=== PATIENT | male | born 1985 | race Caucasian/White ===

== ENCOUNTER 2017-11-02 02:20 | Emergency (ER) | payer OTHER ==
[2017-11-02 02:28] VITALS: TEMP 97.7
[2017-11-02] MEDS ORDERED: DEXAMETHASONE SOD PHOSPHATE 10 MG/ML 1 ML VIAL IV STA (02:48)
[2017-11-02] MEDS ORDERED: IPRATROPIUM-ALBUTEROL 3 ML NEB INHALATION STA (02:48)
[2017-11-02] MEDS ORDERED: cefTRIAXone 2,000 MG in SODIUM CHLORIDE 0.9% 100 ML IVPB STA (02:49)
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
[2017-11-02 02:56] LABS: Basophils # (A) 0.1 k/uL (0-0.2); Basophils % (A) 1 %; Eosinophils # (A) 0.1 k/uL (0-0.7); Eosinophils % (A) 2 %; HCT 44.6 % (39.0-53.0); HGB 15.6 gm/dL (13.0-17.5); Lymphocytes # (A) 2.2 k/uL (1.0-4.8); Lymphocytes % (A) 29 %; MCH 30.8 pg (25.0-35.0); MCV 88.1 fL (80.0-100.0); Mean Platelet Volume 6.9; Monocytes # (A) 0.5 k/uL (0-1.0); Monocytes % (A) 6 %; Neutrophils # (A) 4.6 k/uL (1.3-7.7); Neutrophils % (A) 60 %; Platelet Count 204 k/uL (150-450); RBC 5.06 m/uL (4.30-5.90); RDW 12.9 % (11.5-15.5); WBC 7.7 k/uL (3.8-10.6)
[2017-11-02] MEDS ORDERED: cefTRIAXone IN SWFI 2,000 MG/20 ML SYRINGE IVP ONE (03:00)
[2017-11-02 03:06] LABS: ALT 46 U/L (21-72); AST 22 U/L (17-59); Albumin 4.7 g/dL (3.5-5.0); Alkaline Phosphatase 57 U/L (38-126); Anion Gap 14 mmol/L; Blood Urea Nitrogen 20 mg/dL (9-20); Calcium 9.9 mg/dL (8.4-10.2); Carbon Dioxide 29 mmol/L (22-30); Chloride 101 mmol/L (98-107); Glucose 124 mg/dL (74-99); Potassium 3.9 mmol/L (3.5-5.1); Sodium 144 mmol/L (137-145); Total Bilirubin 0.6 mg/dL (0.2-1.3); Total Protein 7.1 g/dL (6.3-8.2)
[2017-11-02 03:14] VITALS: RESP 16
--- NOTE | 2017-11-02 03:24 | XR ---
EXAM: XR Chest, 2 Views CLINICAL HISTORY: ITS.REASON XR Reason: Pain TECHNIQUE: Frontal and lateral views of the chest. COMPARISON: None. FINDINGS: Lungs: Unremarkable. The lungs are clear. Pleural space: Unremarkable. No pneumothorax. Heart: Unremarkable. No cardiomegaly. Mediastinum: Unremarkable. Bones/joints: Unremarkable. IMPRESSION: Normal chest x-rays.
[2017-11-02 04:50] VITALS: BP 120/86; PULSE 83
== END 2017-11-02 05:07 | disposition home or self-care (01) ==
LOC: EC 02:20
DX: T59.811A Toxic effect of smoke, accidental (unintentional), initial encounter (principal); J70.5 Respiratory conditions due to smoke inhalation; F17.200 Nicotine dependence, unspecified, uncomplicated; Y92.009 Unspecified place in unspecified non-institutional (private) residence as the place of occurrence of the external cause
CPT/HCPCS: 99285; 96374; 96375; 36415; 94640; 93005; 80053; 82375; 85025; 71046; J1100; J0696

== ENCOUNTER 2017-11-29 15:22 | Emergency (ER) | payer OTHER ==
[2017-11-29] MEDS ORDERED: MORPHINE SULFATE 2 MG/ML SYRINGE IVP PRN (15:40)
[2017-11-29] MEDS ORDERED: SODIUM CHLORIDE 0.9% 1,000 ML IV STA (15:40)
[2017-11-29] MEDS ORDERED: MAG HYDROX/AL HYDROX/SIMETH 30 ML, HYOSCYAMINE ELIXIR 10 ML, CIMETIDINE HCL 300 MG, LID... PO STA ×4 (15:42)
[2017-11-29 15:55] LABS: Basophils % (A) 1 %; Eosinophils # (A) 0.1 k/uL (0-0.7); Eosinophils % (A) 2 %; HCT 42.2 % (39.0-53.0); HGB 14.7 gm/dL (13.0-17.5); Lymphocytes # (A) 1.8 k/uL (1.0-4.8); Lymphocytes % (A) 33 %; MCHC 34.8 g/dL (31.0-37.0); MCV 88.9 fL (80.0-100.0); Mean Platelet Volume 6.9; Monocytes # (A) 0.5 k/uL (0-1.0); Monocytes % (A) 8 %; Neutrophils # (A) 2.9 k/uL (1.3-7.7); Neutrophils % (A) 53 %; Platelet Count 182 k/uL (150-450); RBC 4.75 m/uL (4.30-5.90); RDW 13.5 % (11.5-15.5); WBC 5.5 k/uL (3.8-10.6)
[2017-11-29 16:04] LABS: ALT 41 U/L (21-72); AST 25 U/L (17-59); Albumin 4.5 g/dL (3.5-5.0); Alkaline Phosphatase 50 U/L (38-126); Anion Gap 13 mmol/L; Blood Urea Nitrogen 19 mg/dL (9-20); Calcium 9.3 mg/dL (8.4-10.2); Carbon Dioxide 25 mmol/L (22-30); Chloride 103 mmol/L (98-107); Glucose 102 mg/dL (74-99); Lipase 29 U/L (23-300); Potassium 3.8 mmol/L (3.5-5.1); Sodium 141 mmol/L (137-145); Total Bilirubin 0.9 mg/dL (0.2-1.3); Total Protein 7.2 g/dL (6.3-8.2)
--- NOTE | 2017-11-29 16:29 | ED ---
General Adult HPI - General Chief complaint: Abdominal Pain Stated complaint: Abd Pain Source: patient Mode of arrival: ambulatory Limitations: no limitations - History of Present Illness Initial comments: HPI Macro Chief Complaint: 31-year-old male withan past medical history presents with chief complaint of one month of abdominal pain. History of Present Illness: Is a 31-year-old male presents with 1 month history of abdominal pain. Patient states that his symptoms have been increasing in severity and frequency prompting him to the emergency department today. He localizes his abdominal symptoms diffusely worse in the left upper quadrant. Patient has had some episodes of bloody emesis. Patient has been having regular bowel movements. He has any recent abdominal surgery or any abdominal surgery. Denies any diarrhea. Presents today with severe abdominal pain. Denies any pain postprandially. Denies any constitutional symptoms Past Medical History: [reviewed, none to report] Past Surgical History:[reviewed, none to report] Social History: Regular marijuana, regular tobacco Family History: reviewed and noncontributory The ROS documented in this emergency department record has been reviewed and confirmed by me. Those systems with pertinent positive or negative responses have been documented in the HPI. All other systems are other negative and/or noncontributory. - Related Data Previous Rx's Medication Instructions Recorded Azithromycin [Zithromax Tri-Michi] 500 mg PO DAILY #3 tab 11/02/17 Dicyclomine [Bentyl] 10 mg PO TID PRN #20 capsule 11/29/17 Pantoprazole Sodium [Protonix] 40 mg PO DAILY #20 tablet. 11/29/17 Allergies Allergy/AdvReac Type Severity Reaction Status Date / Time No Known Allergies Allergy Verified 11/29/17 15:27 Review of Systems ROS Statement: Those systems with pertinent positive or pertinent negative responses have been documented in the HPI. ROS Other: All systems not noted in ROS Statement are negative. Past Medical History Past Medical History: No Reported History History of Any Multi-Drug Resistant Organisms: None Reported Past Surgical History: No Surgical Hx Reported Past Psychological History: No Psychological Hx Reported Smoking Status: Current every day smoker Past Alcohol Use History: Occasional Past Drug Use History: Marijuana General Exam - General Exam Comments Initial Comments: Vitals: Vital signs upon arrival are within acceptable limits PHYSICAL EXAM: General Impression: Alert and oriented x3, not in acute distress HEENT: Normocephalic atraumatic, extra-ocular movements intact, pupils equal and reactive to light bilaterally, mucous membranes moist. Cardiovascular: Heart regular rate and rhythm, S1&S2 audible, no murmurs, rubs or gallops Chest: Lungs clear to auscultation bilaterally, no rhonchi, no wheeze, no rales Abdomen: Regular bowel sounds, diffuse abdominal tenderness to palpation, worse in the left upper quadrant Musculoskeletal: Pulses present and equal in all extremities, no peripheral edema Motor: Power 5/5 bilaterally, no focal deficits noted Neurological: CN II-XII grossly intact, no focal motor or sensory deficits noted Skin: Intact with no visualized rashes Psych: Normal affect and mood Limitations: no limitations Course Vital Signs 11/29/17 11/29/17 15:24 16:36 Temperature 98.1 F 98.5 F Pulse Rate 90 65 Respiratory 20 18 Rate Blood Pressure 117/82 126/79 O2 Sat by Pulse 99 98 Oximetry Medical Decision Making - Medical Decision Making ED course: 31-year-old male presents with 1 month history of diffuse abdominal pain.Laboratory evaluation obtained. CBC is unremarkable. No leukocytosis. Hemoglobin stable. Cumbersome metabolic panel shows no acute processes. Lipase is within normal limits. Computed tomography scan of the abdomen and pelvis with contrast was obtained showing no acute processes. Patient was given intravenous fluids, morphine and GI cocktail. At this point there is suspicion that patient's symptoms represent gastritis versus peptic ulcer. [id number] bedside ultrasound performed to look for gallstones. No gallstones noted on ultrasound. At this point there is no clinical suspicion for surgical abdomen at this time. No click suspicion for cholecystitis, pancreatitis or bowel obstruction. Discussed with patient that he should follow -up with gastroenterology for outpatient management and possible EGD. Patient told to return to the emergency Department with any worsening symptoms. Patient is understandable and agreeable to plan. Patient given prescription for Pepcid and Bentyl. Patient tolerate by mouth at bedside. Patient's pain is controlled at time of discharge. - Lab Data Result diagrams: 11/29/17 15:45 11/29/17 15:45 Lab Results 11/29/17 11/29/17 Range/Units 15:45 15:45 WBC 5.5 (3.8-10.6) k/uL RBC 4.75 (4.30-5.90) m/uL Hgb 14.7 (13.0-17.5) gm/dL Hct 42.2 (39.0-53.0) % MCV 88.9 (80.0-100.0) fL MCH 31.0 (25.0-35.0) pg MCHC 34.8 (31.0-37.0) g/dL RDW 13.5 (11.5-15.5) % Plt Count 182 (150-450) k/uL Neutrophils % 53 % Lymphocytes % 33 % Monocytes % 8 % Eosinophils % 2 % Basophils % 1 % Neutrophils # 2.9 (1.3-7.7) k/uL Lymphocytes # 1.8 (1.0-4.8) k/uL Monocytes # 0.5 (0-1.0) k/uL Eosinophils # 0.1 (0-0.7) k/uL Basophils # 0.0 (0-0.2) k/uL Sodium 141 (137-145) mmol/L Potassium 3.8 (3.5-5.1) mmol/L Chloride 103 (98-107) mmol/L Carbon Dioxide 25 (22-30) mmol/L Anion Gap 13 mmol/L BUN 19 (9-20) mg/dL Creatinine 0.99 (0.66-1.25) mg/dL Est GFR (CKD-EPI)AfAm >90 (>60 ml/min/1.73 sqM) Est GFR (CKD-EPI)NonAf >90 (>60 ml/min/1.73 sqM) Glucose 102 H (74-99) mg/dL Calcium 9.3 (8.4-10.2) mg/dL Total Bilirubin 0.9 (0.2-1.3) mg/dL AST 25 (17-59) U/L ALT 41 (21-72) U/L Alkaline Phosphatase 50 (38-126) U/L Total Protein 7.2 (6.3-8.2) g/dL Albumin 4.5 (3.5-5.0) g/dL Lipase 29 (23-300) U/L Disposition Clinical Impression: Abdominal pain Disposition: HOME SELF-CARE Condition: Fair Instructions: Abdominal Pain (ED), Gastritis (ED), Peptic Ulcer (ED) Prescriptions: Dicyclomine [Bentyl] 10 mg PO TID PRN #20 capsule PRN Reason: Pain Pantoprazole Sodium [Protonix] 40 mg PO DAILY #20 tablet.dr Is patient prescribed a controlled substance at d/c from ED?: No Referrals: None,Stated [Primary Care Provider] - 1-2 days Antoine Phelan MD [STAFF PHYSICIAN] - 1-2 days Time of Disposition: 17:07
[2017-11-29 16:37] VITALS: RESP 18
--- NOTE | 2017-11-29 16:46 | CT ---
EXAMINATION TYPE: CT abdomen pelvis w con DATE OF EXAM: 11/29/2017 COMPARISON: HISTORY: Generalized abdominal pain x [address] DLP: 345.6 mGycm Automated exposure control for dose reduction was used. TECHNIQUE: Helical acquisition of images from the lung bases through the pelvis have been completed. CONTRAST: Performed without Oral Contrast and with IV Contrast, patient injected with 100 mL of Isovue 300. FINDINGS: LUNG BASES: No significant abnormality is appreciated. AORTA: No significant abnormality is appreciated. LIVER/GB: Hypodensity at the dome of the liver axial image 8 is subcentimeter in size and statistical ly likely representing a cyst. Gallbladder is normal. PANCREAS: No significant abnormality is seen. SPLEEN: No significant abnormality is seen. ADRENALS: No significant abnormality is seen. KIDNEYS: No significant abnormality is seen. REPRODUCTIVE ORGANS: No significant abnormality is seen BOWEL: No significant abnormality is seen. No evident appendicitis, appendix not well visualized FREE AIR: No Free Air visible. ASCITES: None visible. PELVIC ADENOPATHY: None visualized. RETROPERITONEAL ADENOPATHY: No Retroperitoneal Adenopathy visible. URINARY BLADDER: No significant abnormality is seen. OSSEOUS STRUCTURES: Disc height loss present at L5-S1. Mild disc bulge suspected L4-5, there may be spinal curvature. IMPRESSION: NO ABNORMALITY EVIDENT TO ACCOUNT FOR PATIENT'S SYMPTOMS. LACK OF INTRA-ABDOMINAL FAT COULD LIMIT SEN SITIVITY. Follow-up as indicated.
[2017-11-29 17:33] VITALS: BP 111/56; PULSE 80; TEMP 98.4
== END 2017-11-29 17:33 | disposition home or self-care (01) ==
LOC: EC 15:22
DX: R10.9 Unspecified abdominal pain (principal); K92.0 Hematemesis; F17.200 Nicotine dependence, unspecified, uncomplicated
CPT/HCPCS: 36415; 80053; 83690; 85025; 74177; 99284; 96374; 96361; J2270; Q9967

== ENCOUNTER 2018-03-19 14:23 | Inpatient (IN) | payer OTHER ==
[2018-03-19] MEDS ORDERED: IPRATROPIUM-ALBUTEROL 3 ML NEB INHALATION STA (14:45)
[2018-03-19] MEDS ORDERED: SODIUM CHLORIDE 0.9% 1,000 ML IV STA (14:45)
[2018-03-19] MEDS ORDERED: KETOROLAC 30 MG/ML 1 ML VIAL IVP STA (14:49)
[2018-03-19] MEDS ORDERED: SODIUM CHLORIDE 0.9% 1,000 ML IV ONE (14:49)
--- NOTE | 2018-03-19 14:52 | ED ---
General Adult HPI - General Chief complaint: Upper Respiratory Infection Stated complaint: Cough Time Seen by Provider: 03/19/18 14:41 Source: patient, RN notes reviewed, old records reviewed Mode of arrival: ambulatory Limitations: no limitations - History of Present Illness Initial comments: 32-year-old male presents with multiple complaints. Chief complaint is cough and dyspnea. Cough is productive of yellow to brown sputum. Patient is a current smoker. He states that he's been coughing for the past 2 weeks. This is worsened. He is also developed some nausea and vomiting and has been unable to tolerate much oral intake. He admits to using IV drugs approximately one week ago but is uncertain what drug use. He is also complaining of some irritation and drainage to his left eye. Denies abdominal pain. Denies dysuria. Denies fever but has had chills. - Related Data Home Medications Medication Instructions Recorded Confirmed No Known Home Medications 03/19/18 03/19/18 Allergies Allergy/AdvReac Type Severity Reaction Status Date / Time No Known Allergies Allergy Verified 03/19/18 14:37 Review of Systems ROS Statement: Those systems with pertinent positive or pertinent negative responses have been documented in the HPI. ROS Other: All systems not noted in ROS Statement are negative. Past Medical History Past Medical History: No Reported History History of Any Multi-Drug Resistant Organisms: None Reported Past Surgical History: No Surgical Hx Reported Past Psychological History: No Psychological Hx Reported Smoking Status: Current every day smoker Past Alcohol Use History: Occasional Past Drug Use History: Marijuana General Exam Limitations: no limitations General appearance: alert, in no apparent distress Head exam: Present: atraumatic, normocephalic Eye exam: Present: PERRL, other (Palpebral conjunctivitis left eye, normal sclera) Neck exam: Present: normal inspection, full ROM Respiratory exam: Present: wheezes, rhonchi. Absent: respiratory distress Cardiovascular Exam: Present: normal rhythm, tachycardia GI/Abdominal exam: Present: soft. Absent: distended, tenderness Extremities exam: Present: normal inspection, normal capillary refill. Absent: pedal edema Neurological exam: Present: alert, oriented X3, CN II-XII intact. Absent: motor sensory deficit Skin exam: Present: warm, dry, intact. Absent: cyanosis, diaphoretic Course Vital Signs 03/19/18 03/19/18 03/19/18 14:28 15:37 15:49 Temperature 98.4 F Pulse Rate 124 H 104 H 91 Respiratory 18 Rate Blood Pressure 115/74 O2 Sat by Pulse 98 Oximetry 03/19/18 03/19/18 16:50 17:48 Temperature Pulse Rate 76 Respiratory 18 20 Rate Blood Pressure 107/70 O2 Sat by Pulse 98 Oximetry EKG Findings - EKG Comments: EKG Findings:: EKG: Normal sinus rhythm, rate of 88, DC interval 132, QRS duration 82, QTC 46, there is DC depression primarily seen in the inferior leads , 23, aVF, T waves are upright. Medical Decision Making - Medical Decision Making 32-year-old male presenting with cough, dyspnea, and chest pain. Symptoms have been ongoing for the past 2 weeks. EKG does show some DC depression which may be related to pericarditis. Chest x-ray negative for focal pneumonia. Patient is a current smoker and has wheezing on bilateral lung aburto. Dyspnea likely related to acute bronchitis. On reevaluation, he remains dyspneic, with end expiratory wheezing after steroids, Toradol, fluids, and albuterol and Atrovent. He will be kept in observation both for treatment of acute bronchitis and reactive airway disease as well as evaluation of possible pericarditis given EKG changes. Echo will be obtained. Patient will be kept on Motrin 600 mg every 8 hours. Patient was treated with 1 g Rocephin and 500 mg of azithromycin in the emergency department. Urine culture and blood cultures are pending. GC and chlamydia pending as well. - Lab Data Result diagrams: 03/19/18 15:20 03/19/18 15:20 Lab Results 03/19/18 03/19/18 03/19/18 Range/Units 15:20 15:20 15:20 WBC 11.2 H (3.8-10.6) k/uL RBC 4.51 (4.30-5.90) m/uL Hgb 13.8 (13.0-17.5) gm/dL Hct 41.3 (39.0-53.0) % MCV 91.4 (80.0-100.0) fL MCH 30.6 (25.0-35.0) pg MCHC 33.4 (31.0-37.0) g/dL RDW 12.6 (11.5-15.5) % Plt Count 234 (150-450) k/uL Neutrophils % 78 % Lymphocytes % 11 % Monocytes % 8 % Eosinophils % 1 % Basophils % 0 % Neutrophils # 8.7 H (1.3-7.7) k/uL Lymphocytes # 1.2 (1.0-4.8) k/uL Monocytes # 0.9 (0-1.0) k/uL Eosinophils # 0.1 (0-0.7) k/uL Basophils # 0.0 (0-0.2) k/uL PT (9.0-12.0) sec INR (<1.2) APTT (22.0-30.0) sec Sodium 139 (137-145) mmol/L Potassium 4.0 (3.5-5.1) mmol/L Chloride 101 (98-107) mmol/L Carbon Dioxide 29 (22-30) mmol/L Anion Gap 9 mmol/L BUN 17 (9-20) mg/dL Creatinine 1.10 (0.66-1.25) mg/dL Est GFR (CKD-EPI)AfAm >90 (>60 ml/min/1.73 sqM) Est GFR (CKD-EPI)NonAf 89 (>60 ml/min/1.73 sqM) Glucose 101 H (74-99) mg/dL Calcium 9.1 (8.4-10.2) mg/dL Magnesium 2.1 (1.6-2.3) mg/dL Total Bilirubin 0.7 (0.2-1.3) mg/dL AST 45 (17-59) U/L ALT 59 (21-72) U/L Alkaline Phosphatase 108 (38-126) U/L Total Creatine Kinase 112 (55-170) U/L CK-MB (CK-2) 0.4 (0.0-2.4) ng/mL CK-MB (CK-2) Rel Index 0.4 Troponin I <0.012 (0.000-0.034) ng/mL Total Protein 6.9 (6.3-8.2) g/dL Albumin 3.8 (3.5-5.0) g/dL Urine Color Urine Appearance (Clear) Urine pH (5.0-8.0) Ur Specific [place] (1.001-1.035) Urine Protein (Negative) Urine Glucose (UA) (Negative) Urine Ketones (Negative) Urine Blood (Negative) Urine Nitrite (Negative) Urine Bilirubin (Negative) Urine Urobilinogen (<2.0) mg/dL Ur Leukocyte Esterase (Negative) Urine RBC (0-5) /hpf Urine WBC (0-5) /hpf Ur Squamous Epith Cells (0-4) /hpf Urine Mucus (None) /hpf Urine Opiates Screen (NotDetected) Ur Oxycodone Screen (NotDetected) Urine Methadone Screen (NotDetected) Ur Propoxyphene Screen (NotDetected) Ur Barbiturates Screen (NotDetected) U Tricyclic Antidepress (NotDetected) Ur Phencyclidine Scrn (NotDetected) Ur Amphetamines Screen (NotDetected) U Methamphetamines Scrn (NotDetected) U Benzodiazepines Scrn (NotDetected) Urine Cocaine Screen (NotDetected) U Marijuana (THC) Screen (NotDetected) 03/19/18 03/19/18 Range/Units 15:20 Unknown WBC (3.8-10.6) k/uL RBC (4.30-5.90) m/uL Hgb (13.0-17.5) gm/dL Hct (39.0-53.0) % MCV (80.0-100.0) fL MCH (25.0-35.0) pg MCHC (31.0-37.0) g/dL RDW (11.5-15.5) % Plt Count (150-450) k/uL Neutrophils % % Lymphocytes % % Monocytes % % Eosinophils % % Basophils % % Neutrophils # (1.3-7.7) k/uL Lymphocytes # (1.0-4.8) k/uL Monocytes # (0-1.0) k/uL Eosinophils # (0-0.7) k/uL Basophils # (0-0.2) k/uL PT 10.3 (9.0-12.0) sec INR 1.0 (<1.2) APTT 28.2 (22.0-30.0) sec Sodium (137-145) mmol/L Potassium (3.5-5.1) mmol/L Chloride (98-107) mmol/L Carbon Dioxide (22-30) mmol/L Anion Gap mmol/L BUN (9-20) mg/dL Creatinine (0.66-1.25) mg/dL Est GFR (CKD-EPI)AfAm (>60 ml/min/1.73 sqM) Est GFR (CKD-EPI)NonAf (>60 ml/min/1.73 sqM) Glucose (74-99) mg/dL Calcium (8.4-10.2) mg/dL Magnesium (1.6-2.3) mg/dL Total Bilirubin (0.2-1.3) mg/dL AST (17-59) U/L ALT (21-72) U/L Alkaline Phosphatase (38-126) U/L Total Creatine Kinase (55-170) U/L CK-MB (CK-2) (0.0-2.4) ng/mL CK-MB (CK-2) Rel Index Troponin I (0.000-0.034) ng/mL Total Protein (6.3-8.2) g/dL Albumin (3.5-5.0) g/dL Urine Color Yellow Urine Appearance Clear (Clear) Urine pH 7.5 (5.0-8.0) Ur Specific [place] 1.016 (1.001-1.035) Urine Protein Trace H (Negative) Urine Glucose (UA) Negative (Negative) Urine Ketones Negative (Negative) Urine Blood Negative (Negative) Urine Nitrite Negative (Negative) Urine Bilirubin Negative (Negative) Urine Urobilinogen >12.0 (<2.0) mg/dL Ur Leukocyte Esterase Moderate H (Negative) Urine RBC 6 H (0-5) /hpf Urine WBC 15 H (0-5) /hpf Ur Squamous Epith Cells <1 (0-4) /hpf Urine Mucus Rare H (None) /hpf Urine Opiates Screen Not Detected (NotDetected) Ur Oxycodone Screen Not Detected (NotDetected) Urine Methadone Screen Not Detected (NotDetected) Ur Propoxyphene Screen Not Detected (NotDetected) Ur Barbiturates Screen Not Detected (NotDetected) U Tricyclic Antidepress Not Detected (NotDetected) Ur Phencyclidine Scrn Not Detected (NotDetected) Ur Amphetamines Screen Detected H (NotDetected) U Methamphetamines Scrn Detected H (NotDetected) U Benzodiazepines Scrn Detected H (NotDetected) Urine Cocaine Screen Not Detected (NotDetected) U Marijuana (THC) Screen Detected H (NotDetected) Disposition Clinical Impression: Bronchitis, Reactive airway disease, Pericarditis Disposition: ADMITTED IP TO THIS HOSP Condition: Stable Is patient prescribed a controlled substance at d/c from ED?: No Referrals: Odin Hagen MD [Primary Care Provider] - 1-2 days Decision to Admit Reason: Admit from EC Decision Date: 03/19/18 Decision Time: 17:55
[2018-03-19] MEDS ORDERED: AZITHROMYCIN 500 MG in SODIUM CHLORIDE 0.9% 250 ML IVPB STA (16:06)
--- NOTE | 2018-03-19 16:09 | XR ---
EXAMINATION TYPE: XR chest 2V DATE OF EXAM: 03/19/2018 COMPARISON: NONE HISTORY: Shortness of breath. TECHNIQUE: Frontal and lateral views of the chest are obtained. FINDINGS: There is no focal air space opacity, pleural effusion, or pneumothorax seen. The cardiac silhouette size is within normal limits. The osseous structures are intact. There is pulmonary hype rinflation and biapical lucency. IMPRESSION: No acute cardiopulmonary process. Radiographic sequela of COPD.
[2018-03-19 16:31] LABS: Basophils % (A) 0 %; Eosinophils # (A) 0.1 k/uL (0-0.7); Eosinophils % (A) 1 %; HCT 41.3 % (39.0-53.0); HGB 13.8 gm/dL (13.0-17.5); Lymphocytes # (A) 1.2 k/uL (1.0-4.8); Lymphocytes % (A) 11 %; MCH 30.6 pg (25.0-35.0); MCHC 33.4 g/dL (31.0-37.0); MCV 91.4 fL (80.0-100.0); Mean Platelet Volume 7.6; Monocytes # (A) 0.9 k/uL (0-1.0); Monocytes % (A) 8 %; Neutrophils # (A) 8.7 k/uL (1.3-7.7); Neutrophils % (A) 78 %; Platelet Count 234 k/uL (150-450); RBC 4.51 m/uL (4.30-5.90); RDW 12.6 % (11.5-15.5); WBC 11.2 k/uL (3.8-10.6)
[2018-03-19 16:40] LABS: ALT 59 U/L (21-72); AST 45 U/L (17-59); Albumin 3.8 g/dL (3.5-5.0); Alkaline Phosphatase 108 U/L (38-126); Anion Gap 9 mmol/L; Blood Urea Nitrogen 17 mg/dL (9-20); Calcium 9.1 mg/dL (8.4-10.2); Carbon Dioxide 29 mmol/L (22-30); Chloride 101 mmol/L (98-107); Glucose 101 mg/dL (74-99); Magnesium 2.1 mg/dL (1.6-2.3); Sodium 139 mmol/L (137-145); Total Bilirubin 0.7 mg/dL (0.2-1.3); Total Protein 6.9 g/dL (6.3-8.2)
[2018-03-19 16:49] LABS: Creatine Kinase 112 U/L (55-170)
[2018-03-19 16:50] LABS: Partial Thromboplastin Time 28.2 sec (22.0-30.0); Prothrombin Time 10.3 sec (9.0-12.0)
[2018-03-19] MEDS ORDERED: DEXAMETHASONE SOD PHOSPHATE 10 MG/ML 1 ML VIAL IV STA (16:59)
[2018-03-19 17:02] LABS: Creatine Kinase MB 0.4 ng/mL (0.0-2.4); Troponin I <0.012 ng/mL (0.000-0.034)
[2018-03-19 17:35] LABS: Appearance,Urine Clear (Clear); Bilirubin,Urine Negative (Negative); Blood,Urine Negative (Negative); Color,Urine Yellow; Glucose,Urine (UA) Negative (Negative); Ketones,Urine Negative (Negative); Leukocyte Esterase,Urine Moderate (Negative); Mucus,Urine Rare /hpf; Nitrite,Urine Negative (Negative); PH, Urine 7.5 (5.0-8.0); Protein,Urine Trace (Negative); RBC,Urine 6 /hpf (0-5); Specific Gravity,Urine 1.016 (1.001-1.035); Squamous Epithelial Cell,Urine <1 /hpf (0-4); Urobilinogen,Urine >12.0 mg/dL (<2.0); WBC,Urine 15 /hpf (0-5)
[2018-03-19 17:42] LABS: Amphetamine Screen,Urine Detected (NotDetected); Barbiturate Screen,Urine Not Detected (NotDetected); Benzodiazepines Screen,Urine Detected (NotDetected); Cocaine Screen,Urine Not Detected (NotDetected); Methadone Screen, Urine Not Detected (NotDetected); Opiate Screen,Urine Not Detected (NotDetected); Oxycodone Screen, Urine Not Detected (NotDetected); Phencyclidine Screen,Urine Not Detected (NotDetected); Tricyclic Antidepressant,Urine Not Detected (NotDetected); Urn Cannabinoid Scrn Detected (NotDetected)
[2018-03-19] MEDS ORDERED: IPRATROPIUM-ALBUTEROL 3 ML NEB INHALATION PRN (17:49)
[2018-03-19] MEDS: SODIUM CHLORIDE 0.9% 1,000 ML IV SCH (19:02)
[2018-03-19] MEDS: methylPREDNISolone SOD SUCCI 125 MG/2 ML VIAL IV SCH ×2 (20:56→23:00)
[2018-03-19] MEDS: IBUPROFEN 600 MG TAB PO SCH (21:39)
[2018-03-19] MEDS: NICOTINE 21MG/24HR PATCH TRANSDERM SCH (21:56)
[2018-03-19] MEDS: ERYTHROMYCIN 5 MG/GM OPHTH OINT 3.5 GM TUBE LEFT EYE SCH (21:56)
[2018-03-19] MEDS ORDERED: TEMAZEPAM 15 MG CAP PO PRN (22:15)
[2018-03-19] MEDS: ONDANSETRON 4 MG/2 ML VIAL IVP PRN (23:01)
[2018-03-19] MEDS: HYDROcodone/APAP 5-325MG 1 EACH TAB PO PRN (23:15)
[2018-03-20] MEDS: ONDANSETRON 4 MG/2 ML VIAL IVP PRN (04:13)
[2018-03-20] MEDS: LORazepam 0.5 MG TAB PO PRN (04:57)
[2018-03-20] MEDS: methylPREDNISolone SOD SUCCI 125 MG/2 ML VIAL IV SCH ×4 (04:58→22:39)
[2018-03-20] MEDS: ERYTHROMYCIN 5 MG/GM OPHTH OINT 3.5 GM TUBE LEFT EYE SCH ×3 (05:00→18:04)
[2018-03-20 07:02] LABS: Glucose,Whole Blood 216 mg/dL (75-99)
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
[2018-03-20 07:36] LABS: Basophils % (A) 1 %; Eosinophils % (A) 0 %; HCT 37.6 % (39.0-53.0); HGB 12.4 gm/dL (13.0-17.5); Lymphocytes # (A) 0.7 k/uL (1.0-4.8); Lymphocytes % (A) 10 %; MCH 30.4 pg (25.0-35.0); MCHC 32.9 g/dL (31.0-37.0); MCV 92.2 fL (80.0-100.0); Mean Platelet Volume 7.5; Monocytes # (A) 0.1 k/uL (0-1.0); Monocytes % (A) 1 %; Neutrophils # (A) 5.8 k/uL (1.3-7.7); Neutrophils % (A) 87 %; Platelet Count 215 k/uL (150-450); RBC 4.08 m/uL (4.30-5.90); RDW 12.5 % (11.5-15.5); WBC 6.7 k/uL (3.8-10.6)
[2018-03-20 08:00] LABS: Anion Gap 6 mmol/L; Blood Urea Nitrogen 17 mg/dL (9-20); Calcium 8.8 mg/dL (8.4-10.2); Carbon Dioxide 29 mmol/L (22-30); Chloride 107 mmol/L (98-107); Glucose 208 mg/dL (74-99); Potassium 4.8 mmol/L (3.5-5.1); Sodium 142 mmol/L (137-145)
[2018-03-20] MEDS: IPRATROPIUM-ALBUTEROL 3 ML NEB INHALATION SCH ×4 (08:00→19:25)
[2018-03-20] MEDS: HEPARIN SODIUM,PORCINE 5,000 UNIT/ML 1 ML VIAL SQ SCH ×2 (09:06→20:24)
[2018-03-20] MEDS: NICOTINE 21MG/24HR PATCH TRANSDERM SCH (09:06)
[2018-03-20] MEDS: PANTOPRAZOLE 40 MG TABLET PO SCH (09:06)
[2018-03-20] MEDS: IBUPROFEN 600 MG TAB PO SCH ×3 (09:07→20:25)
[2018-03-20] MEDS: AZITHROMYCIN 500 MG TAB PO SCH (09:17)
[2018-03-20] MEDS: INSULIN ASPART 100 UNIT/ML 1 ML 10 ML VIAL SQ SCH ×4 (09:20→21:25)
--- NOTE | 2018-03-20 09:35 | ECHOF ---
Referral Reason:chest pain MEASUREMENTS -------- HEIGHT: 188.0 cm WEIGHT: 70.3 kg BP: RVIDd: 2.4 cm (< 3.3) IVSd: 0.7 cm (0.6 - 1.1) LVIDd: 4.6 cm (3.9 - 5.3) LVPWd: 1.0 cm (0.6 - 1.1) IVSs: 1.2 cm LVIDs: 3.1 cm LVPWs: 1.3 cm LA Diam: 3.0 cm (2.7 - 3.8) Ao Diam: 3.2 cm (2.0 - 3.7) AV Cusp: 1.7 cm (1.5 - 2.6) LA Diam: 3.1 cm (2.7 - 3.8) MV EXCURSION: 22.560 mm (> 18.000) MV EF SLOPE: 81 mm/s (70 - 150) EPSS: 0.2 cm MV E Maldonado: 0.88 m/s MV DecT: 275 ms MV A Maldonado: 0.56 m/s MV E/A Ratio: 1.58 RAP: 5.00 mmHg RVSP: 32.11 mmHg FINDINGS -------- Sinus rhythm. This was a technically good study. LV size, wall thickness and systolic function are normal, with an EF greater than 55%. The left ronel tricular size is normal. The right ventricle is normal in size. The left atrial size is normal. The right atrial size is normal. The aortic valve is trileaflet, and appears structurally normal. No aortic stenosis or regurgitation. Mild mitral annular calcification present. Mild mitral regurgitation is present. Mild tricuspid regurgitation present. There is no evidence of pulmonary hypertension. The right v entricular systolic pressure, as measured by Doppler, is 32.11mmHg. There is no pulmonic regurgitation present. The aortic root size is normal. There is no pericardial effusion. CONCLUSIONS -------- 1. LV size, wall thickness and systolic function are normal, with an EF greater than 55%. 2. The left ventricular size is normal. 3. The right ventricle is normal in size. 4. The left atrial size is normal. 5. The right atrial size is normal. 6. The aortic valve is trileaflet, and appears structurally normal. No aortic stenosis or regurgitati on. 7. Mild mitral annular calcification present. 8. Mild mitral regurgitation is present. 9. Mild tricuspid regurgitation present. 10. There is no evidence of pulmonary hypertension. 11. The right ventricular systolic pressure, as measured by Doppler, is 32.11mmHg. 12. There is no pulmonic regurgitation present. 13. The aortic root size is normal. 14. There is no pericardial effusion. DEPORTATION EXAMINER: Cherelle Bennett RDCS
[2018-03-20 12:23] LABS: Glucose,Whole Blood 237 mg/dL (75-99)
[2018-03-20 13:29] LABS: Hemoglobin A1C 5.3 % (4.0-6.0)
[2018-03-20 14:30] LABS: C. trachomatis,PCR Negative (Neg,Equiv); Chlamydia trachomatis Source Urine; N. gonorrhoeae,PCR Negative (Neg,Equiv); Neisseria Source Urine
[2018-03-20] MEDS: SODIUM CHLORIDE 0.9% 1,000 ML IV SCH ×2 (15:57→18:04)
--- NOTE | 2018-03-20 16:36 | CDI ---
Last Revision, April 2017 Documentation Clarification Form Date: 03/20/2018 4:28:47 PM From: Claudette MendietaCHUY, CCDS Admit Date: 03/20/2018 2:09:00 PM Patient Name: Víctor Porras Visit Number: [id number] Discharge Date: ATTENTION: The Clinical Documentation Specialists (CDI) and [facility] Coding Staff appreciate your assistance in clarifying documentation. Please respond to the clarification below the line at the bottom and electronically sign. The CDI & [facility] Coding staff will review the response and follow-up if needed. Please note: Queries are made part of the Legal Health Record. If you have any questions, please contact the author of this message via ITS. Cha Burch MD: 32 yo male, admitted with SOB & cough, diagnosed with "Acute bronchial asthma acute exacerbation with acute purulent tracheobronchitis" & left eye cellulitis. Patient history/risk factors: Nicotine dependence, polysubstance abuse, asthma & bronchitis. Clinical Indicators: SOB 7 cough for several days, nausea & vomiting, infection in left eye. Radiology: CXR: No acute cardiopulmonary process, sequela of COPD. Vital Signs: P 124^ Treatment: Albuterol INH, IV fluid boluses x2, IV toradol, IV Azithromycin, IV Rocephin, IV Solumedrol. No pulmonary consult. In your professional opinion, can you please further specify the severity & type of asthma, if known? Severity: Mild intermittent Mild persistent Moderate persistent Severe persistent Other, please specify Unable to determine Form or Type: Cough variant Childhood Exercise induced bronchospasm Extrinsic allergic Idiosyncratic Intrinsic nonallergic Late-onset Mixed Other, please specify Unable to determine MTDD
[2018-03-20 16:44] LABS: Glucose,Whole Blood 226 mg/dL (75-99)
[2018-03-20] MEDS: HYDROcodone/APAP 5-325MG 1 EACH TAB PO PRN (20:23)
[2018-03-20 20:40] LABS: Glucose,Whole Blood 268 mg/dL (75-99)
[2018-03-20] MEDS: traMADol 50 MG TAB PO PRN (22:40)
[2018-03-21 00:31] VITALS: RESP 16
[2018-03-21] MEDS: ERYTHROMYCIN 5 MG/GM OPHTH OINT 3.5 GM TUBE LEFT EYE SCH ×2 (02:01→04:44)
[2018-03-21] MEDS: methylPREDNISolone SOD SUCCI 125 MG/2 ML VIAL IV SCH ×2 (04:43→12:11)
[2018-03-21] MEDS: LORazepam 0.5 MG TAB PO PRN (04:45)
[2018-03-21] MEDS: HYDROcodone/APAP 5-325MG 1 EACH TAB PO PRN ×2 (04:45→12:15)
[2018-03-21 06:46] LABS: Glucose,Whole Blood 199 mg/dL (75-99)
[2018-03-21] MEDS: IPRATROPIUM-ALBUTEROL 3 ML NEB INHALATION SCH ×3 (07:01→15:41)
[2018-03-21] MEDS: HEPARIN SODIUM,PORCINE 5,000 UNIT/ML 1 ML VIAL SQ SCH (08:17)
[2018-03-21] MEDS: NICOTINE 21MG/24HR PATCH TRANSDERM SCH (08:17)
[2018-03-21] MEDS: PANTOPRAZOLE 40 MG TABLET PO SCH (08:18)
[2018-03-21] MEDS: INSULIN ASPART 100 UNIT/ML 1 ML 10 ML VIAL SQ SCH ×2 (08:18→12:11)
[2018-03-21] MEDS: AZITHROMYCIN 500 MG TAB PO SCH (08:18)
[2018-03-21] MEDS: traMADol 50 MG TAB PO PRN (08:21)
[2018-03-21] MEDS: IBUPROFEN 600 MG TAB PO SCH (10:48)
[2018-03-21 11:21] VITALS: BMI 18.3
[2018-03-21 11:56] LABS: Glucose,Whole Blood 171 mg/dL (75-99)
[2018-03-21 15:01] VITALS: BP 127/74; TEMP 97.4
[2018-03-21 15:56] VITALS: PULSE 70
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
== END 2018-03-21 20:00 | disposition home or self-care (01) | DRG 203 ==
LOC: EC 14:23 → 1SOBS 17:50 → OBSVTOIN 03-20 14:09
PROVIDERS: ADMIT Hospitalist; ATTEND Hospitalist
DX: J45.31 Mild persistent asthma with (acute) exacerbation (principal); J20.9 Acute bronchitis, unspecified; F17.200 Nicotine dependence, unspecified, uncomplicated; H10.9 Unspecified conjunctivitis; F19.10 Other psychoactive substance abuse, uncomplicated
CPT/HCPCS: 36415; 71046; 80048; 80053; 80306; 81001; 82550; 82553; 83036; 83735; 84484; 85025; 85610; 85730; 87040; 87086; 87491; 87591; 93005; 93306; 94640; 96361; 96365; 96367; 96375; 99285

== ENCOUNTER 2018-08-17 02:24 | Emergency (ER) | payer OTHER ==
[2018-08-17 02:34] VITALS: BP 116/81; PULSE 95; RESP 18; TEMP 98.2
[2018-08-17] MEDS ORDERED: PROPARACAINE 0.5% OPHTH DROPS 15 ML BTL RIGHT EYE STA (03:06)
--- NOTE | 2018-08-17 03:27 | ED ---
ENT HPI - General Source: patient Mode of arrival: ambulatory Limitations: no limitations <Barbara Webb - Last Filed: 08/17/18 03:16> <Eda Adams - Last Filed: 08/18/18 21:11> - General Chief complaint: ENT Stated complaint: R Eye Pain Time Seen by Provider: 08/17/18 02:49 - History of Present Illness Initial comments: 32-year-old male patient presents to the emergency department today for evaluation of right eye irritation and drainage. Patient states that starting earlier in the afternoon patient felt there is something in his eye. Patient states he attempted to flush it and rub it out but it did not work. Patient states later that evening he noticed some green discharge from the eye. Patient states he is still having some eye discomfort. Denies any blurred or double vision. Denies any fevers or chills with this. Patient states he has been sleeping in a house with His [employer]ER[employer] but denies any symptoms the other eye. Patient denies any recent rash, fever, chills, shortness breath, chest pain, abdominal pain, nausea, vomiting, diarrhea, constipation, back pain, numbness, tingling, dizziness, weakness, hematuria, dysuria, urinary urgency, urinary frequency, headache, or any other complaints. (Barbara Webb) - Related Data Previous Rx's Medication Instructions Recorded Azithromycin [Zithromax] 500 mg PO DAILY #2 tab 03/21/18 Erythromycin Ophth Oint [Romycin 1 applic LEFT EYE Q12HR 3 Days #1 03/21/18 Ophth Oint] applic predniSONE 40 mg PO DAILY 2 Days #4 tab 03/21/18 Allergies Allergy/AdvReac Type Severity Reaction Status Date / Time No Known Allergies Allergy Verified 08/17/18 02:34 Review of Systems ROS Other: All systems not noted in ROS Statement are negative. <Barbara Webb - Last Filed: 08/17/18 03:16> ROS Other: All systems not noted in ROS Statement are negative. <Eda Adams - Last Filed: 08/18/18 21:11> ROS Statement: Those systems with pertinent positive or pertinent negative responses have been documented in the HPI. Past Medical History Past Medical History: Asthma Additional Past Medical History / Comment(s): bronchitis, "difficulty sleeping" History of Any Multi-Drug Resistant Organisms: None Reported Past Surgical History: Tonsillectomy Additional Past Surgical History / Comment(s): lt hand sx d/t laceration Past Anesthesia/Blood Transfusion Reactions: No Reported Reaction Additional Past Anesthesia/Blood Transfusion Reaction / Comment(s): clausterphobia Past Psychological History: No Psychological Hx Reported Smoking Status: Current every day smoker Past Alcohol Use History: None Reported Past Drug Use History: None Reported - Past Family History Mother History Unknown: Yes Father History Unknown: Yes <Barbara Webb - Last Filed: 08/17/18 03:16> General Exam Limitations: no limitations General appearance: alert, in no apparent distress, other (Physical well- developed, well-nourished adult male patient in no acute distress. Vital signs upon presentation are temperature 98.2F, pulse 95, respirations 18, blood pressure 116/81, pulse ox 97% on room air.) Eye exam: Present: PERRL, EOMI, other (There is right conjunctival injection, mild lid erythema. Fluorescein stain with Wood's lamp examination was performed and showed no evidence for corneal abrasion or conjunctival injury.). Absent: normal appearance, scleral icterus, conjunctival injection, periorbital swelling ENT exam: Present: normal exam, normal oropharynx, mucous membranes moist Respiratory exam: Present: normal lung sounds bilaterally. Absent: respiratory distress, wheezes, rales, rhonchi, stridor Cardiovascular Exam: Present: regular rate, normal rhythm, normal heart sounds. Absent: systolic murmur, diastolic murmur, rubs, gallop, clicks Neurological exam: Present: alert, oriented X3, CN II-XII intact Psychiatric exam: Present: normal affect, normal mood Skin exam: Present: warm, dry, intact, normal color. Absent: rash <Barbara Webb M - Last Filed: 08/17/18 03:16> Course Vital Signs 08/17/18 02:31 Temperature 98.2 F Pulse Rate 95 Respiratory 18 Rate Blood Pressure 116/81 O2 Sat by Pulse 97 Oximetry Medical Decision Making <Barbara Webb M - Last Filed: 08/17/18 03:16> <Eda Adams - Last Filed: 08/18/18 21:11> - Medical Decision Making 32-year-old male patient presented to the emergency department today for evaluation of ear patient to the right eye with green discharge. Physical examination did reveal mild conjunctival injection. Mild erythema to the upper lid. No edema. Patient denies any visual disturbance. Fluorescein stain with Wood's lamp examination was performed and showed no evidence of corneal or conjunctival injury. Symptoms and phsyical exam findings are consistent with conjunctivitis. We will discharge patient with tobramycin ointment to use 4 times daily. Is instructed to follow-up with ophthalmology for further evaluati on of symptoms aren't improving over the next 1-2 days. He is instructed to follow-up with his primary care physician for recheck in 2 days. Return parameters were discussed in detail. He verbalizes understanding and agrees with this plan. (Barbara Webb) I was available for consultation in the emergency department. The history and physical exam were done by the midlevel provider. I was consulted for this patient's care. I reviewed the case with the midlevel provider and based on their presentation of the patient, I agree with the assessment, medical decision making and plan of care as documented. (Eda Adams) Disposition Is patient prescribed a controlled substance at d/c from ED?: No Time of Disposition: 03:29 <Barbara Webb - Last Filed: 08/17/18 03:16> <Eda Adams - Last Filed: 08/18/18 21:11> Clinical Impression: Right conjunctivitis Disposition: HOME SELF-CARE Condition: Good Instructions (If sedation given, give patient instructions): Tobramycin (Into the eye), Conjunctivitis (ED) Additional Instructions: Use eye ointment 4 times daily while awake. Pulled down lower lid and apply 1 cm ribbon, blink through. Follow-up with packaging clerk for recheck in 1-2 days his symptoms aren't improved. Follow-up through primary care physician for recheck in 1-2 days. Return to the emergency department immediately for any new, worsening, or concerning symptoms. Referrals: Odin Hagen MD [Primary Care Provider] - 1-2 days Chilo Aragon MD [STAFF PHYSICIAN] - 1-2 days
[2018-08-17] MEDS ORDERED: TOBRAMYCIN 0.3% OPHTH OINT 3.5 GM TUBE RIGHT EYE STA (03:29)
== END 2018-08-17 03:49 | disposition home or self-care (01) ==
LOC: EC 02:24
DX: H10.9 Unspecified conjunctivitis (principal); F17.200 Nicotine dependence, unspecified, uncomplicated
CPT/HCPCS: 99283

== ENCOUNTER 2018-08-29 09:23 | Emergency (ER) | payer OTHER ==
[2018-08-29] MEDS ORDERED: SODIUM CHLORIDE 0.9% 1,000 ML IV STA ×2 (09:42)
[2018-08-29] MEDS ORDERED: KETOROLAC 30 MG/ML 1 ML VIAL IVP STA (09:42)
[2018-08-29] MEDS ORDERED: ONDANSETRON 4 MG/2 ML VIAL IVP STA (09:42)
--- NOTE | 2018-08-29 09:45 | ED ---
Chest Pain HPI - General Chief Complaint: Chest Pain Stated Complaint: chest pain Time Seen by Provider: 08/29/18 09:31 Source: patient, RN notes reviewed, old records reviewed Mode of arrival: ambulatory Limitations: no limitations - History of Present Illness Initial Comments: Patient is a 32-year-old male presents emergency department today with comp laints of chest pain and upper abdominal pain for the past 3 days. Patient has had no fevers that he is aware of. He complains of a slight cough. Patient denies any significant past medical history. Patient states that he's had multiple episodes of vomiting. - Related Data Previous Rx's Medication Instructions Recorded Albuterol Inhaler [Ventolin Hfa 1 - 2 puff INHALATION RT-Q6H PRN 08/29/18 Inhaler] #1 inhaler Famotidine [Pepcid] 20 mg PO BID #20 tablet 08/29/18 Ketorolac [Toradol] 10 mg PO Q6HR #12 tab 08/29/18 Ondansetron Odt [Zofran Odt] 4 mg PO Q8HR PRN #20 tab 08/29/18 methylPREDNISolone [Medrol Dose 4 mg PO DIRECTED #1 pack 08/29/18 Pack] Allergies Allergy/AdvReac Type Severity Reaction Status Date / Time No Known Allergies Allergy Verified 08/29/18 09:56 Review of Systems ROS Statement: Those systems with pertinent positive or pertinent negative responses have been documented in the HPI. ROS Other: All systems not noted in ROS Statement are negative. EKG Findings - EKG Comments: EKG Findings:: EKG performed at 945 shows sinus rhythm with early repolarization. Normal EKG noted. Ventricular rate of 73 bpm. NV interval is 144 ms. QRS duration 84 ms. QT 376/414 ms. - EKG Results: EKG: interpreted by CHEPE WILLIAM, normal QRS, normal ST/T Past Medical History Past Medical History: Asthma Additional Past Medical History / Comment(s): bronchitis, "difficulty sleeping" History of Any Multi-Drug Resistant Organisms: None Reported Past Surgical History: Tonsillectomy Additional Past Surgical History / Comment(s): lt hand sx d/t laceration Past Anesthesia/Blood Transfusion Reactions: No Reported Reaction Additional Past Anesthesia/Blood Transfusion Reaction / Comment(s): clausterphobia Past Psychological History: No Psychological Hx Reported Smoking Status: Current every day smoker Past Alcohol Use History: None Reported Past Drug Use History: None Reported - Past Family History Mother History Unknown: Yes Father History Unknown: Yes General Exam - General Exam Comments Initial Comments: Well-appearing 32-year-old male. No distress. Limitations: no limitations General appearance: alert, in no apparent distress Head exam: Present: atraumatic, normocephalic, normal inspection Eye exam: Present: normal appearance, PERRL, EOMI. Absent: scleral icterus, conjunctival injection, periorbital swelling Respiratory exam: Present: normal lung sounds bilaterally. Absent: respiratory distress, wheezes, rales, rhonchi, stridor Cardiovascular Exam: Present: regular rate, normal rhythm, normal heart sounds. Absent: systolic murmur, diastolic murmur, rubs, gallop, clicks GI/Abdominal exam: Present: soft, tenderness (Diffuse), normal bowel sounds. Absent: distended, guarding, rebound, rigid Extremities exam: Present: normal inspection, full ROM, normal capillary refill. Absent: tenderness, pedal edema, joint swelling, calf tenderness Neurological exam: Present: alert, oriented X3, CN II-XII intact Psychiatric exam: Present: normal affect, normal mood Skin exam: Present: warm, dry, intact, normal color, other (Multiple tattoos.). Absent: rash Course Vital Signs 08/29/18 08/29/18 09:23 10:26 Temperature 97.5 F L Pulse Rate 110 H 66 Respiratory 18 16 Rate Blood Pressure 130/93 120/95 O2 Sat by Pulse 94 L 100 Oximetry Chest Pain [facility] 32-year-old male presents for his with diffuse abdominal pain, complains of some chest discomfort. Patient's labwork was reviewed and unremarkable. EKG is normal. Chest x-ray is normal. Patient given Toradol and Zofran. This Patient likely secondary to gastroenteritis. Disc failurussed the Patient to follow-up with his primary care doctor. Discussed putting the Patient on proton next and Zofran. All questions answered. Chest x-ray is negative for any acute process. Disposition Clinical Impression: Nausea & vomiting, Bronchitis Disposition: HOME SELF-CARE Condition: Good Instructions (If sedation given, give patient instructions): Chest Pain (ED) Additional Instructions: Patient advised to rest, increase fluid intake. Follow-up with PCP. Return to ED if any alarming signs or symptoms occur. Prescriptions: methylPREDNISolone [Medrol Dose Pack] 4 mg PO DIRECTED #1 pack Famotidine [Pepcid] 20 mg PO BID #20 tablet Ketorolac [Toradol] 10 mg PO Q6HR #12 tab Albuterol Inhaler [Ventolin Hfa Inhaler] 1 - 2 puff INHALATION RT-Q6H PRN #1 inhaler PRN Reason: Shortness Of Breath Ondansetron Odt [Zofran Odt] 4 mg PO Q8HR PRN #20 tab PRN Reason: Nausea Is patient prescribed a controlled substance at d/c from ED?: No Referrals: Odin Hagen MD [Primary Care Provider] - 1-2 days Time of Disposition: 12:19
--- NOTE | 2018-08-29 10:00 | XR ---
EXAMINATION TYPE: XR chest 2V DATE OF EXAM: 08/29/2018 COMPARISON: 03/19/2018 TECHNIQUE: PA and lateral views submitted. HISTORY: Chest pain FINDINGS: The lungs are clear and there is no pneumothorax, pleural effusion, or focal pneumonia. Biapical pl eural thickening. Hyperinflation suggests COPD. IMPRESSION: 1. No acute process.
[2018-08-29 10:40] LABS: Basophils # (A) 0.1 k/uL (0-0.2); Basophils % (A) 1 %; Eosinophils # (A) 0.1 k/uL (0-0.7); Eosinophils % (A) 2 %; HCT 46.6 % (39.0-53.0); HGB 15.5 gm/dL (13.0-17.5); Lymphocytes # (A) 1.2 k/uL (1.0-4.8); Lymphocytes % (A) 23 %; MCH 29.9 pg (25.0-35.0); MCHC 33.3 g/dL (31.0-37.0); MCV 89.8 fL (80.0-100.0); Mean Platelet Volume 6.9; Monocytes # (A) 0.4 k/uL (0-1.0); Monocytes % (A) 8 %; Neutrophils # (A) 3.4 k/uL (1.3-7.7); Neutrophils % (A) 64 %; Platelet Count 240 k/uL (150-450); RBC 5.19 m/uL (4.30-5.90); RDW 13.3 % (11.5-15.5); WBC 5.3 k/uL (3.8-10.6)
[2018-08-29 10:51] LABS: Partial Thromboplastin Time 24.3 sec (22.0-30.0); Prothrombin Time 10.4 sec (9.0-12.0)
[2018-08-29 11:12] LABS: ALT 30 U/L (21-72); AST 23 U/L (17-59); Albumin 3.9 g/dL (3.5-5.0); Alkaline Phosphatase 67 U/L (38-126); Amylase <30 U/L (30-110); Anion Gap 5 mmol/L; Blood Urea Nitrogen 13 mg/dL (9-20); Calcium 9.4 mg/dL (8.4-10.2); Carbon Dioxide 31 mmol/L (22-30); Chloride 104 mmol/L (98-107); Glucose 88 mg/dL (74-99); Lipase 41 U/L (23-300); Magnesium 2.3 mg/dL (1.6-2.3); Potassium 4.4 mmol/L (3.5-5.1); Sodium 140 mmol/L (137-145); Total Bilirubin 1.2 mg/dL (0.2-1.3); Total Protein 6.1 g/dL (6.3-8.2)
[2018-08-29 12:05] LABS: Appearance,Urine Clear (Clear); Bilirubin,Urine Negative (Negative); Blood,Urine Negative (Negative); Color,Urine Yellow; Glucose,Urine (UA) Negative (Negative); Ketones,Urine 1+ (Negative); Leukocyte Esterase,Urine Negative (Negative); Nitrite,Urine Negative (Negative); PH, Urine 6.5 (5.0-8.0); Protein,Urine Trace (Negative); Specific Gravity,Urine 1.021 (1.001-1.035)
[2018-08-29 13:15] VITALS: BP 121/69; PULSE 77; RESP 18; TEMP 98
== END 2018-08-29 12:55 | disposition home or self-care (01) ==
LOC: EC 09:23
DX: J45.909 Unspecified asthma, uncomplicated (principal); R11.2 Nausea with vomiting, unspecified; R10.84 Generalized abdominal pain; F17.200 Nicotine dependence, unspecified, uncomplicated; Z98.890 Other specified postprocedural states
CPT/HCPCS: 36415; 71046; 80053; 81003; 82150; 83690; 83735; 84484; 85025; 85610; 85730; 87502; 96361; 96374; 96375; 99285

== ENCOUNTER 2018-09-01 16:33 | Observation (INO) | payer OTHER ==
--- NOTE | 2018-09-01 16:48 | ED ---
Abdominal Pain HPI - General Chief Complaint: Abdominal Pain Stated Complaint: Abd Pain Time Seen by Provider: 09/01/18 16:39 Source: patient Mode of arrival: ambulatory Limitations: no limitations - History of Present Illness Initial Comments: 32-year-old male presents with abdominal pain that has been ongoing for the last week. Patient states he was seen 3 days ago for the same thing. Patient having pain mainly across the abdomen but more so on the right side. Patient also having right flank pain. Patient states he has a decreased appetite having nausea and vomiting as well. Patient is having loose stools as well as some blood in the stool as well. No fevers. No surgical history. No dysuria. No recent travel. MD Complaint: abdominal pain -: days(s) (7) Location: diffuse, RUQ, RLQ, R flank Radiation: none Severity scale (1-10): 7 Quality: cramping, aching Improves With: nothing Worsens With: eating Associated Symptoms: nausea, vomiting, diarrhea, melena - Related Data Previous Rx's Medication Instructions Recorded Albuterol Inhaler [Ventolin Hfa 1 - 2 puff INHALATION RT-Q6H PRN 08/29/18 Inhaler] #1 inhaler Famotidine [Pepcid] 20 mg PO BID #20 tablet 08/29/18 Ketorolac [Toradol] 10 mg PO Q6HR #12 tab 08/29/18 Ondansetron Odt [Zofran Odt] 4 mg PO Q8HR PRN #20 tab 08/29/18 methylPREDNISolone [Medrol Dose 4 mg PO DIRECTED #1 pack 08/29/18 Pack] Allergies Allergy/AdvReac Type Severity Reaction Status Date / Time No Known Allergies Allergy Verified 09/01/18 16:37 Review of Systems ROS Statement: Those systems with pertinent positive or pertinent negative responses have been documented in the HPI. ROS Other: All systems not noted in ROS Statement are negative. Constitutional: Denies: fever, chills, weakness ENT: Denies: ear pain Respiratory: Denies: cough Cardiovascular: Denies: chest pain Endocrine: Reports: fatigue Gastrointestinal: Reports: abdominal pain, nausea, vomiting, diarrhea Genitourinary: Denies: dysuria Skin: Denies: rash Neurological: Denies: headache, weakness, numbness, paresthesias Past Medical History Past Medical History: Asthma Additional Past Medical History / Comment(s): bronchitis, "difficulty sleeping" History of Any Multi-Drug Resistant Organisms: None Reported Past Surgical History: Tonsillectomy Additional Past Surgical History / Comment(s): lt hand sx d/t laceration Past Anesthesia/Blood Transfusion Reactions: No Reported Reaction Additional Past Anesthesia/Blood Transfusion Reaction / Comment(s): clausterphobia Past Psychological History: No Psychological Hx Reported Smoking Status: Current every day smoker Past Alcohol Use History: None Reported Past Drug Use History: None Reported - Past Family History Mother History Unknown: Yes Father History Unknown: Yes General Exam Limitations: no limitations General appearance: alert, in no apparent distress Head exam: Present: atraumatic, normocephalic, normal inspection Eye exam: Present: normal appearance, PERRL, EOMI. Absent: scleral icterus, conjunctival injection, periorbital swelling ENT exam: Present: normal exam, mucous membranes moist Respiratory exam: Present: normal lung sounds bilaterally. Absent: respiratory distress, wheezes, rales, rhonchi, stridor Cardiovascular Exam: Present: regular rate, normal rhythm, normal heart sounds. Absent: systolic murmur, diastolic murmur, rubs, gallop, clicks GI/Abdominal exam: Present: soft, tenderness (x 4 but more on right side), guarding, normal bowel sounds. Absent: distended, rebound, rigid Neurological exam: Present: alert, oriented X3, CN II-XII intact Psychiatric exam: Present: normal affect, normal mood Skin exam: Present: warm, dry, intact, normal color. Absent: rash Course Vital Signs 09/01/18 16:34 Temperature 97.7 F Pulse Rate 87 Respiratory 18 Rate Blood Pressure 134/95 O2 Sat by Pulse 99 Oximetry Medical Decision Making - Medical Decision Making reviewed all lab, + hemturia and CT results show cyst in liver, free fluid in pelvis. Discussed with Dr. Crane patient will be admitted under Dr. Hadley Leonardo for further evaluation and treatment. Patient will be put on a clear liquid diet. - Lab Data Result diagrams: 09/01/18 16:50 09/01/18 16:50 Lab Results 09/01/18 09/01/18 09/01/18 Range/Units 16:15 16:50 16:50 WBC 7.3 (3.8-10.6) k/uL RBC 4.69 (4.30-5.90) m/uL Hgb 14.2 (13.0-17.5) gm/dL Hct 40.8 (39.0-53.0) % MCV 86.9 (80.0-100.0) fL MCH 30.2 (25.0-35.0) pg MCHC 34.8 (31.0-37.0) g/dL RDW 15.9 H (11.5-15.5) % Plt Count 186 (150-450) k/uL Neutrophils % 61 % Lymphocytes % 27 % Monocytes % 7 % Eosinophils % 2 % Basophils % 1 % Neutrophils # 4.5 (1.3-7.7) k/uL Lymphocytes # 2.0 (1.0-4.8) k/uL Monocytes # 0.5 (0-1.0) k/uL Eosinophils # 0.2 (0-0.7) k/uL Basophils # 0.0 (0-0.2) k/uL Sodium 145 (137-145) mmol/L Potassium 3.5 (3.5-5.1) mmol/L Chloride 109 H (98-107) mmol/L Carbon Dioxide 30 (22-30) mmol/L Anion Gap 6 mmol/L BUN 12 (9-20) mg/dL Creatinine 0.95 (0.66-1.25) mg/dL Est GFR (CKD-EPI)AfAm >90 (>60 ml/min/1.73 sqM) Est GFR (CKD-EPI)NonAf >90 (>60 ml/min/1.73 sqM) Glucose 95 (74-99) mg/dL Calcium 8.7 (8.4-10.2) mg/dL Total Bilirubin 0.3 (0.2-1.3) mg/dL AST 17 (17-59) U/L ALT 26 (21-72) U/L Alkaline Phosphatase 65 (38-126) U/L Total Protein 5.4 L (6.3-8.2) g/dL Albumin 3.4 L (3.5-5.0) g/dL Amylase 38 (30-110) U/L Lipase 92 (23-300) U/L Urine Color Yellow Urine Appearance Clear (Clear) Urine pH 5.5 (5.0-8.0) Ur Specific [place] 1.013 (1.001-1.035) Urine Protein Negative (Negative) Urine Glucose (UA) Negative (Negative) Urine Ketones Negative (Negative) Urine Blood Large H (Negative) Urine Nitrite Negative (Negative) Urine Bilirubin Negative (Negative) Urine Urobilinogen <2.0 (<2.0) mg/dL Ur Leukocyte Esterase Negative (Negative) Urine RBC >182 H (0-5) /hpf Urine WBC 4 (0-5) /hpf Urine Mucus Rare H (None) /hpf Disposition Clinical Impression: Acute abdomen, Abdominal pain Disposition: ADMITTED IP TO THIS HOSP Condition: Fair Instructions (If sedation given, give patient instructions): Abdominal Pain (ED) Referrals: Odin Hagen MD [Primary Care Provider] - 1-2 days
[2018-09-01] MEDS ORDERED: SODIUM CHLORIDE 0.9% 1,000 ML IV STA (16:50)
[2018-09-01] MEDS ORDERED: HYDROmorphone 0.5 MG/0.5 ML SYRINGE IVP STA ×2 (17:04→18:09)
[2018-09-01] MEDS ORDERED: ONDANSETRON 4 MG/2 ML VIAL IVP STA (17:04)
[2018-09-01 17:14] LABS: Basophils % (A) 1 %; Eosinophils # (A) 0.2 k/uL (0-0.7); Eosinophils % (A) 2 %; HCT 40.8 % (39.0-53.0); HGB 14.2 gm/dL (13.0-17.5); Lymphocytes % (A) 27 %; MCH 30.2 pg (25.0-35.0); MCHC 34.8 g/dL (31.0-37.0); MCV 86.9 fL (80.0-100.0); Mean Platelet Volume 9.2; Monocytes # (A) 0.5 k/uL (0-1.0); Monocytes % (A) 7 %; Neutrophils # (A) 4.5 k/uL (1.3-7.7); Neutrophils % (A) 61 %; Platelet Count 186 k/uL (150-450); RBC 4.69 m/uL (4.30-5.90); RDW 15.9 % (11.5-15.5); WBC 7.3 k/uL (3.8-10.6)
[2018-09-01 17:17] LABS: ALT 26 U/L (21-72); AST 17 U/L (17-59); Albumin 3.4 g/dL (3.5-5.0); Alkaline Phosphatase 65 U/L (38-126); Amylase 38 U/L (30-110); Anion Gap 6 mmol/L; Blood Urea Nitrogen 12 mg/dL (9-20); Calcium 8.7 mg/dL (8.4-10.2); Carbon Dioxide 30 mmol/L (22-30); Chloride 109 mmol/L (98-107); Glucose 95 mg/dL (74-99); Lipase 92 U/L (23-300); Potassium 3.5 mmol/L (3.5-5.1); Sodium 145 mmol/L (137-145); Total Bilirubin 0.3 mg/dL (0.2-1.3); Total Protein 5.4 g/dL (6.3-8.2)
[2018-09-01 17:21] LABS: Appearance,Urine Clear (Clear); Bilirubin,Urine Negative (Negative); Blood,Urine Large (Negative); Color,Urine Yellow; Glucose,Urine (UA) Negative (Negative); Ketones,Urine Negative (Negative); Leukocyte Esterase,Urine Negative (Negative); Mucus,Urine Rare /hpf; Nitrite,Urine Negative (Negative); PH, Urine 5.5 (5.0-8.0); Protein,Urine Negative (Negative); RBC,Urine >182 /hpf (0-5); Specific Gravity,Urine 1.013 (1.001-1.035); Urobilinogen,Urine <2.0 mg/dL (<2.0)
--- NOTE | 2018-09-01 17:34 | CT ---
EXAMINATION TYPE: CT abdomen pelvis w con DATE OF EXAM: 09/01/2018 COMPARISON: 11/29/2017 INDICATION: Lower abdominal pain, fever and hematuria x 1 week. DLP: 594.9 mGycm, Automated exposure control for dose reduction was used. CONTRAST: 100 mL of Isovue 300. Study performed without Oral Contrast TECHNIQUE: Axial images were obtained from above the diaphragm to the pubic rami in the axial plane a t 5 mm thick sections. Reconstructed images are reviewed on the computer in the coronal plane. FINDINGS: Limited CT sections are obtained the lung bases. The lung bases are clear. Some pectus excavatum is present. CT ABDOMEN: Liver: A small cyst measuring 0.5 cm of the right dome of the diaphragms to small to classify as simp le cyst. Liver otherwise appears unremarkable. Spleen: Normal Pancreas: Normal Adrenal glands: The adrenal glands are normal. Gallbladder: Normal Kidneys: No masses are evident. No hydronephrosis is present. No cysts are present. There is a non obstructing 0.3 cm calcification in the mid left kidney. Aorta: Normal Inferior vena cava: Normal. CT PELVIS: Some minimal free fluid may be within the dependent pelvis. This would be considered abnor mal in a male. Loops of bowel within the abdomen and pelvis are normal. Study is performed without oral contrast limiting bowel evaluation. A few diverticuli are likely present within the sigmoid colon. Appendix: Normal as visualized. Urinary bladder: Normal. Genitourinary structures: Prostate is unremarkable Osseous structures: No suspicious lytic or sclerotic lesions. IMPRESSIONS: 1. Nonobstructing renal stone left kidney. 2. Probable tiny cyst within the liver. Follow-up ultrasound as an outpatient would be recommended. 3. Diverticulosis without acute diverticulitis. 4. There is some questionable fluid within the pelvis which could be considered abnormal in a male.
[2018-09-01] MEDS ORDERED: NALOXONE 0.4 MG/ML 1 ML VIAL IV PRN (18:16)
[2018-09-01] MEDS ORDERED: ACETAMINOPHEN TAB 325 MG TAB PO PRN (18:16)
[2018-09-01] MEDS ORDERED: ONDANSETRON 4 MG/2 ML VIAL IVP PRN (18:16)
[2018-09-01] MEDS: SODIUM CHLORIDE 0.9% 1,000 ML IV SCH (20:26)
[2018-09-01] MEDS: HYDROmorphone 0.5 MG/0.5 ML SYRINGE IVP PRN (23:45)
[2018-09-02] MEDS: HYDROmorphone 0.5 MG/0.5 ML SYRINGE IVP PRN ×3 (08:49→20:58)
--- NOTE | 2018-09-02 11:31 | P.GSCN ---
History of Present Illness Consult date: 09/02/18 Reason for Consult: Abdominal pain History of present illness: This is a 32-year-old male was admitted through the emergency room last night wi th complaints of abdominal pain. Patient is resting comfortably in bed with his girlfriend. He is eating ice cream. He states he has some minimal pain. Past Medical History Past Medical History: Asthma Additional Past Medical History / Comment(s): bronchitis, "difficulty sleeping" History of Any Multi-Drug Resistant Organisms: None Reported Past Surgical History: Tonsillectomy Additional Past Surgical History / Comment(s): lt hand sx d/t laceration Past Anesthesia/Blood Transfusion Reactions: No Reported Reaction Additional Past Anesthesia/Blood Transfusion Reaction / Comm: clausterphobia Past Psychological History: No Psychological Hx Reported Smoking Status: Current every day smoker Past Alcohol Use History: None Reported Additional Past Alcohol Use History / Comment(s): started smoking at age 11 has smoked off and on ,currently smokes 1/2 ppd but last few days d/t sickness has'nt smoked much. Past Drug Use History: None Reported Additional Drug Use History / Comment(s): first tried marijuana at age 8- smokes occ - Past Family History Mother History Unknown: Yes Father History Unknown: Yes Medications and Allergies Home Medications Medication Instructions Recorded Confirmed Type Albuterol Inhaler [Ventolin Hfa 1 - 2 puff INHALATION RT-Q6H PRN 08/29/18 09/01/18 Rx Inhaler] #1 inhaler methylPREDNISolone [Medrol Dose See Taper PO DIRECTED 09/01/18 09/01/18 History Pack] Allergies Allergy/AdvReac Type Severity Reaction Status Date / Time No Known Allergies Allergy Verified 09/01/18 19:13 Surgical - Exam Vital Signs Temp Pulse Resp BP Pulse Ox 97.7 F 87 18 134/95 99 09/01/18 16:34 09/01/18 16:34 09/01/18 16:34 09/01/18 16:34 09/01/18 16:34 - General well developed, well nourished, no distress - Eyes PERRL - ENT normal pinna - Neck no masses - Respiratory normal expansion - Cardiovascular Rhythm: regular - Abdomen Minimal left-sided tenderness. There is no rebound or guarding. Abdomen: soft Results - Labs 09/01/18 16:50 09/01/18 16:50 Abnormal Lab Results - Last 24 Hours (Table) 09/01/18 09/01/18 09/01/18 Range/Units 16:15 16:50 16:50 RDW 15.9 H (11.5-15.5) % Chloride 109 H (98-107) mmol/L Total Protein 5.4 L (6.3-8.2) g/dL Albumin 3.4 L (3.5-5.0) g/dL Urine Blood Large H (Negative) Urine RBC >182 H (0-5) /hpf Urine Mucus Rare H (None) /hpf Diabetes panel 09/01/18 Range/Units 16:50 Sodium 145 (137-145) mmol/L Potassium 3.5 (3.5-5.1) mmol/L Chloride 109 H (98-107) mmol/L Carbon Dioxide 30 (22-30) mmol/L BUN 12 (9-20) mg/dL Creatinine 0.95 (0.66-1.25) mg/dL Glucose 95 (74-99) mg/dL Calcium 8.7 (8.4-10.2) mg/dL AST 17 (17-59) U/L ALT 26 (21-72) U/L Alkaline Phosphatase 65 (38-126) U/L Total Protein 5.4 L (6.3-8.2) g/dL Albumin 3.4 L (3.5-5.0) g/dL Calcium panel 09/01/18 Range/Units 16:50 Calcium 8.7 (8.4-10.2) mg/dL Albumin 3.4 L (3.5-5.0) g/dL Pituitary panel 09/01/18 Range/Units 16:50 Sodium 145 (137-145) mmol/L Potassium 3.5 (3.5-5.1) mmol/L Chloride 109 H (98-107) mmol/L Carbon Dioxide 30 (22-30) mmol/L BUN 12 (9-20) mg/dL Creatinine 0.95 (0.66-1.25) mg/dL Glucose 95 (74-99) mg/dL Calcium 8.7 (8.4-10.2) mg/dL Adrenal panel 09/01/18 Range/Units 16:50 Sodium 145 (137-145) mmol/L Potassium 3.5 (3.5-5.1) mmol/L Chloride 109 H (98-107) mmol/L Carbon Dioxide 30 (22-30) mmol/L BUN 12 (9-20) mg/dL Creatinine 0.95 (0.66-1.25) mg/dL Glucose 95 (74-99) mg/dL Calcium 8.7 (8.4-10.2) mg/dL Total Bilirubin 0.3 (0.2-1.3) mg/dL AST 17 (17-59) U/L ALT 26 (21-72) U/L Alkaline Phosphatase 65 (38-126) U/L Total Protein 5.4 L (6.3-8.2) g/dL Albumin 3.4 L (3.5-5.0) g/dL Assessment and Plan Assessment: Mild left-sided abdominal pain. The patient has evidence of diverticulosis. There is no significant inflammatory changes on his CAT scan. The patient will have his diet advanced to regular diet. He appears to be able to be discharged home later today.
[2018-09-02] MEDS: NICOTINE 21MG/24HR PATCH TRANSDERM SCH (13:39)
[2018-09-02] MEDS ORDERED: ALBUTEROL NEBULIZED 2.5 MG/3 ML INHALATION PRN (16:17)
[2018-09-02] MEDS ORDERED: TEMAZEPAM 15 MG CAP PO PRN (16:19)
[2018-09-02] MEDS: PANTOPRAZOLE 40 MG/10 ML VIAL IVP SCH (17:36)
[2018-09-02] MEDS: HYDROcodone/APAP 5-325MG 1 EACH TAB PO PRN (17:37)
[2018-09-02] MEDS: ALPRAZolam 0.25 MG TAB PO PRN (17:38)
[2018-09-02] MEDS: HEPARIN SODIUM,PORCINE 5,000 UNIT/ML 1 ML VIAL SQ SCH (17:38)
[2018-09-02] MEDS: KETOROLAC 30 MG/ML 1 ML VIAL IVP PRN ×2 (17:45→23:59)
--- NOTE | 2018-09-02 19:09 | HP ---
HISTORY AND PHYSICAL DATE OF SERVICE: 09/02/2018 CHIEF COMPLAINT: Abdominal pain. HISTORY OF PRESENT ILLNESS: This 32-year-old gentleman with a past medical history of multiple medical problems including history of asthma, history of bronchitis, tonsillectomy being followed by Dr. Hagen in the outpatient setting is complaining of severe abdominal pain. The pain is mostly situated in the right side of the abdomen. The patient was in the ER about 3 days ago also. Because of lack of improvement the patient was admitted for evaluation and treatment. The patient also had right flank pain also. The patient also underwent abdominal pelvis CAT scan at this time which showed nonobstructive renal stone of the left kidney and probably tiny cyst in the liver and was admitted for further evaluation and treatment. There is no history of fever, rigors. No headache, loss of consciousness, seizures. PAST MEDICAL HISTORY: History of asthma, bronchitis and tonsillectomy. MEDICATIONS: Prior to admission include Medrol Dosepak as directed, albuterol 1-2 puffs q.6h p.r.n. ALLERGIES: None. FAMILY HISTORY: No history of heart disease or strokes family. SOCIAL HISTORY: History of smoking. No history of alcohol intake. History of THC. REVIEW OF SYSTEMS: ENT: No diminished hearing or vision. CARDIOVASCULAR: No angina. RESPIRATORY: No cough. GI: As mentioned earlier. : No dysuria. NERVOUS SYSTEM: No numbness or weakness. ALLERGY/IMMUNOLOGY: As mentioned earlier. HEMATOLOGY/ONCOLOGY: No history of anemia. ENDOCRINE: No history of diabetes or hypothyroidism. CONSTITUTIONAL: As mentioned earlier. DERMATOLOGY: Negative. RHEUMATOLOGY: Negative. PSYCHIATRY: As mentioned earlier. PHYSICAL EXAMINATION: Alert and oriented x3. The pulse is 63, blood pressure 104/60, respiratory 20, temperature 97.2, pulse ox 97% on room air. HEENT: Conjunctivae normal. NECK: No jugular venous distention. CARDIOVASCULAR: S1, S2 muffled. RESPIRATORY: Breath sounds diminished in the bases. Scattered rhonchi and crackles. ABDOMEN: Soft, nontender. No mass palpable. LEGS: No edema. NERVOUS SYSTEM: Higher function as mentioned. Moves all four limbs. No focal deficits. LYMPHATICS: No lymphadenopathy in the neck, axillae, groin. SKIN: No ulcer. JOINTS: No active deforming arthropathy. LABS: At this time shows WBC 7.2, hemoglobin 14.2, sodium 140, potassium 3.9. Albumin is 3.4. UA noted. ASSESSMENT: 1. Abdominal pain for evaluation possibly severe urolithiasis. 2. Left nonobstructing renal stone. 3. Diverticulosis without any diverticulitis. RECOMMENDATIONS AND DISCUSSION: I recommend to continue current management, continue to monitor, and symptomatic treatment. Surgical evaluation noted. Otherwise, we will advance diet. Guarded prognosis because of multiple complex medical issues. Further recommendations to follow. Prognosis guarded. MMODL / IJN: [id number] /
[2018-09-02] MEDS: SODIUM CHLORIDE 0.9% 1,000 ML IV SCH (19:17)
[2018-09-02 21:36] VITALS: RESP 16
[2018-09-03] MEDS: HYDROcodone/APAP 5-325MG 1 EACH TAB PO PRN ×2 (03:33→10:20)
[2018-09-03] MEDS: ALPRAZolam 0.25 MG TAB PO PRN ×2 (06:35→15:31)
[2018-09-03 08:15] LABS: Basophils % (A) 1 %; Eosinophils # (A) 0.2 k/uL (0-0.7); Eosinophils % (A) 3 %; HCT 41.2 % (39.0-53.0); Lymphocytes # (A) 1.7 k/uL (1.0-4.8); Lymphocytes % (A) 31 %; MCH 30.3 pg (25.0-35.0); MCHC 33.9 g/dL (31.0-37.0); MCV 89.3 fL (80.0-100.0); Mean Platelet Volume 6.7; Monocytes # (A) 0.4 k/uL (0-1.0); Monocytes % (A) 7 %; Neutrophils # (A) 3.1 k/uL (1.3-7.7); Neutrophils % (A) 56 %; Platelet Count 203 k/uL (150-450); RBC 4.61 m/uL (4.30-5.90); RDW 13.1 % (11.5-15.5); WBC 5.6 k/uL (3.8-10.6)
[2018-09-03 08:32] LABS: Anion Gap 2 mmol/L; Blood Urea Nitrogen 11 mg/dL (9-20); Calcium 8.4 mg/dL (8.4-10.2); Carbon Dioxide 32 mmol/L (22-30); Chloride 106 mmol/L (98-107); Glucose 73 mg/dL (74-99); Potassium 4.1 mmol/L (3.5-5.1); Sodium 140 mmol/L (137-145)
[2018-09-03] MEDS: PANTOPRAZOLE 40 MG/10 ML VIAL IVP SCH (09:10)
[2018-09-03] MEDS: NICOTINE 21MG/24HR PATCH TRANSDERM SCH (09:10)
[2018-09-03] MEDS: HEPARIN SODIUM,PORCINE 5,000 UNIT/ML 1 ML VIAL SQ SCH (09:10)
[2018-09-03] MEDS: KETOROLAC 30 MG/ML 1 ML VIAL IVP PRN (09:10)
[2018-09-03] MEDS: SODIUM CHLORIDE 0.9% 1,000 ML IV SCH (09:15)
--- NOTE | 2018-09-03 11:27 | P.PN ---
Subjective Progress Note Date: 09/03/18 CHIEF COMPLAINT: Abdominal pain HISTORY OF PRESENT ILLNESS: Patient seen and examined at the bedside. Patient appears comfortable. Denies nausea or vomiting. Passing flatus. Patient is currently eating a sandwich. PHYSICAL EXAM: VITAL SIGNS: Reviewed. GENERAL: Well-developed in no acute distress. HEENT: No sclera icterus. Extraocular movements grossly intact. Moist buccal mucosa. Head is atraumatic, normocephalic. ABDOMEN: Soft. Nondistended. Nontender. NEUROLOGIC: Alert and oriented. Cranial nerves II through XII grossly intact. ASSESSMENT: 1. Abdominal pain 2. Diverticulosis. No evidence of diverticulitis PLAN: Patient is cleared for discharge from a surgical standpoint. We will sign off. Please reconsult if needed. Nurse practitioner note has been reviewed by physician. Signing provider agrees with the documented findings, assessment, and plan of care. Objective - Vital Signs Vital signs: Vital Signs Temp 97.7 F 09/03/18 05:00 Pulse 60 09/03/18 05:00 Resp 16 09/03/18 05:00 BP 101/59 09/03/18 05:00 Pulse Ox 95 09/03/18 05:00 Intake & Output 09/02/18 09/03/18 09/03/18 18:59 06:59 18:59 Intake Total 400 3940 Balance 400 3940 Intake: Intake, IV Titration 400 2400 Amount Sodium Chloride 0.9% 1, 400 2400 000 ml @ 200 mls/hr IV . Q5H ALIZE Rx#:[id number] Oral 1540 Other: Voiding Method Toilet Toilet # Voids 2 6 # Bowel Movements 1 - Labs CBC & Chem 7: 09/03/18 07:27 09/03/18 07:27 Labs: Abnormal Lab Results - Last 24 Hours (Table) 09/03/18 Range/Units 07:27 Carbon Dioxide 32 H (22-30) mmol/L Glucose 73 L (74-99) mg/dL
[2018-09-03 11:46] VITALS: BP 108/61; PULSE 62; TEMP 97.6
--- NOTE | 2018-09-04 07:14 | DS ---
DISCHARGE SUMMARY DATE OF SERVICE: 09/03/2018 FINAL DIAGNOSES: 1. Abdominal pain possibly acute urolithiasis. 2. Left nonobstructing renal stone. 3. Diverticulosis without any diverticulitis. DISCHARGE DISPOSITION: The patient will be discharged in a stable condition with guarded prognosis. HISTORY OF PRESENT ILLNESS: This is a 32-year-old gentleman with a past medical history, admitted with abdominal pain which pain is felt in the right flank to low in pain. The CAT scan showed urolithiasis on the left side. Patient treated symptomatically. Patient improved significantly. Follow up with The patient is followed by Dr. Hagen in the outpatient setting. On exam, vitals are stable. CARDIOVASCULAR: S1, S2. ABDOMEN: Soft. NERVOUS SYSTEM: No focal deficits. DISCHARGE ADVICE: Diet is cardiac diet. Activity limited until followup. Follow up with Dr. Hagen in 2-3 days; follow up with Dr. Alvarez as recommended. Follow up with Urology as recommended. MEDICATIONS: 1. Medrol Dosepak as before. 2. Pepcid 20 mg p.o. daily. 3. Tylenol p.r.n. 4. Albuterol 2 puffs q.i.d. p.r.n. Subsequently, the patient will be discharged in stable condition with a guarded prognosis. MMODL / IJN: [id number] /
== END 2018-09-03 15:47 | disposition home or self-care (01) ==
LOC: EC 16:33 → 3NMEDONC 18:10
PROVIDERS: ADMIT Hospitalist; ATTEND Hospitalist
DX: R10.11 Right upper quadrant pain (principal); R10.31 Right lower quadrant pain; N20.0 Calculus of kidney; J45.909 Unspecified asthma, uncomplicated; K57.90 Diverticulosis of intestine, part unspecified, without perforation or abscess without bleeding; F17.210 Nicotine dependence, cigarettes, uncomplicated; Z79.51 Long term (current) use of inhaled steroids; Z98.890 Other specified postprocedural states
CPT/HCPCS: 96376 ×4; 96361 ×2; 96372 ×2; 96375 ×2; 96374; 99285; 36415; 80053; 80048; 82150; 83690; 85025 ×2; 81001; 87502; 74177; G0378 ×3; S4990 ×2; J1644 ×2; J2405; J1885 ×2; C9113 ×2; J1170 ×2; Q9967

== ENCOUNTER 2018-10-15 18:42 | Emergency (ER) | payer OTHER ==
[2018-10-15 19:00] VITALS: BP 134/89; PULSE 71; RESP 18; TEMP 97.7
[2018-10-15] MEDS ORDERED: DIPH,PERTUS(ACELL)TETVAC-LF 0.5 ML VIAL IM ONE (19:19)
[2018-10-15] MEDS ORDERED: DOXYCYCLINE 100 MG CAP PO STA (19:19)
--- NOTE | 2018-10-15 19:22 | ED ---
General Adult HPI - General Chief complaint: Extremity Injury, Upper Stated complaint: finger pain Time Seen by Provider: 10/15/18 19:05 Source: patient Mode of arrival: ambulatory Limitations: no limitations - History of Present Illness Initial comments: Patient is a 32-year-old male who presents with chief complaint of right index finger pain after a suspected splinter. The patient says his been going on for 2 days. He does not know where he got a splinter from. He states that he was working on his car, moaning a lot, and putting a trampoline together. He states that today he noticed some redness around the puncture site. Patient denies any fever or chills. He states that he has also had an upper respiratory infection for 3 months. Tetanus status is out of date. Patient does not have any other previous medical history. He is a half-pack per day smoker - Related Data Home Medications Medication Instructions Recorded Confirmed methylPREDNISolone [Medrol Dose See Taper PO DIRECTED 09/01/18 09/01/18 Pack] Previous Rx's Medication Instructions Recorded Albuterol Inhaler [Ventolin Hfa 1 - 2 puff INHALATION RT-Q6H PRN 08/29/18 Inhaler] #1 inhaler Acetaminophen Tab [Tylenol] 650 mg PO Q6HR PRN tab 09/03/18 Famotidine [Pepcid] 20 mg PO DAILY #30 tablet 09/03/18 Albuterol Inhaler [Ventolin Hfa 1 - 2 puff INHALATION RT-Q4H #1 10/15/18 Inhaler] inhaler Doxycycline Hyclate 100 mg PO Q12H #10 tab 10/15/18 Allergies Allergy/AdvReac Type Severity Reaction Status Date / Time latex Allergy Unknown Verified 10/15/18 19:00 Review of Systems ROS Statement: Those systems with pertinent positive or pertinent negative responses have been documented in the HPI. ROS Other: All systems not noted in ROS Statement are negative. Respiratory: Reports: cough Past Medical History Past Medical History: Asthma Additional Past Medical History / Comment(s): bronchitis, "difficulty sleeping" History of Any Multi-Drug Resistant Organisms: None Reported Past Surgical History: Tonsillectomy Additional Past Surgical History / Comment(s): lt hand sx d/t laceration Past Anesthesia/Blood Transfusion Reactions: No Reported Reaction Additional Past Anesthesia/Blood Transfusion Reaction / Comment(s): clausterphobia Past Psychological History: No Psychological Hx Reported Smoking Status: Current every day smoker Past Alcohol Use History: None Reported Past Drug Use History: None Reported - Past Family History Mother History Unknown: Yes Father History Unknown: Yes General Exam Limitations: no limitations General appearance: alert, in no apparent distress Head exam: Present: atraumatic, normocephalic Eye exam: Present: normal appearance ENT exam: Present: normal exam Neck exam: Present: normal inspection Respiratory exam: Present: normal lung sounds bilaterally. Absent: respiratory distress, wheezes Cardiovascular Exam: Present: regular rate, normal rhythm GI/Abdominal exam: Present: soft. Absent: distended, tenderness Rectal exam: Present: deferred Extremities exam: Present: normal inspection, other (Patient is a small puncture on the lateral aspect of his right index finger. There is surrounding erythema, no fluctuance, no tenderness of the tendon sheath) Back exam: Present: normal inspection Neurological exam: Present: alert, oriented X3 Psychiatric exam: Present: normal affect, normal mood Skin exam: Present: warm, dry, intact Course Vital Signs 10/15/18 18:57 Temperature 97.7 F Pulse Rate 71 Respiratory 18 Rate Blood Pressure 134/89 O2 Sat by Pulse 98 Oximetry Medical Decision Making - Medical Decision Making Patient presents with a chief complaint of finger pain. On initial evaluation, vitals are stable, patient is in no acute distress. He'll be evaluated x-rays to rule out foreign body. Patient will be starting on doxycycline, tetanus status updated. He was instructed to follow up with primary care in 1-2 days, he was given orthopedic referral. X-rays show a 5 mm, round radiopacity projecting over the soft tissue. At this time, further evaluation the wound shows a single puncture with a calloused, and it dirty ring around it. I believe this to be the density. Regardless, patient was told about the finding. He was prescribed doxycycline, he was given orthopedic and follow-up. He was given explicit signs and symptoms that should prompt immediate return to the emergency department. Follow-up with primary care and orthopedics one to 2 days. Disposition Clinical Impression: Splinter, Finger injury Disposition: HOME SELF-CARE Condition: Good Instructions (If sedation given, give patient instructions): Cellulitis (ED) Prescriptions: Doxycycline Hyclate 100 mg PO Q12H #10 tab Albuterol Inhaler [Ventolin Hfa Inhaler] 1 - 2 puff INHALATION RT-Q4H #1 inhaler Is patient prescribed a controlled substance at d/c from ED?: No Referrals: None,Stated [Primary Care Provider] - 1-2 days Robert Silva MD [Medical Doctor] - 1-2 days Kit Oneal MD [Medical Doctor] - 1-2 days
--- NOTE | 2018-10-15 19:51 | XR ---
EXAMINATION TYPE: XR hand complete RT DATE OF EXAM: 10/15/2018 COMPARISON: NONE HISTORY: Possible foreign body TECHNIQUE: 3 views FINDINGS: Metacarpals are intact. I see no fracture nor dislocation. There are no erosions. There is a rounded 5 mm radiopacity projected in the soft tissues adjacent to the lateral base of the middle p halanx of the index finger. This could be unusual calcification or a foreign body. There is normal ning int spaces. IMPRESSION: Unusual radiodensity in the soft tissues as above could be a foreign body or calcificatio n.
== END 2018-10-15 20:40 | disposition home or self-care (01) ==
LOC: EC 18:42
DX: S60.450A Superficial foreign body of right index finger, initial encounter (principal); Z23 Encounter for immunization; J45.909 Unspecified asthma, uncomplicated; F17.210 Nicotine dependence, cigarettes, uncomplicated; Z91.040 Latex allergy status; Z79.899 Other long term (current) drug therapy; W45.8XXA Other foreign body or object entering through skin, initial encounter
CPT/HCPCS: 90471; 90715; 99283

== ENCOUNTER 2019-01-30 16:35 | Emergency (ER) | payer OTHER ==
[2019-01-30] MEDS ORDERED: FAMOTIDINE 20 MG/2 ML VIAL IV STA (17:01)
[2019-01-30] MEDS ORDERED: MAG HYDROX/AL HYDROX/SIMETH 30 ML, HYOSCYAMINE ELIXIR 10 ML, CIMETIDINE HCL 300 MG, LID... PO STA ×4 (17:01)
--- NOTE | 2019-01-30 17:07 | ED ---
General Adult HPI - General Chief complaint: Abdominal Pain Stated complaint: abd pain Time Seen by Provider: 01/30/19 16:47 Source: patient, RN notes reviewed Mode of arrival: ambulatory Limitations: no limitations - History of Present Illness Initial comments: 33-year-old male with a past medical history of asthma, bronchitis presents to the emergency department for a chief complaint of epigastric pain. Patient states approximately half an hour prior to arrival he drank a quarter of a bottle of hot sauce for $100. Sates that he needed the money. States that immediately after it started to have severe burning in his upper abdomen. States he cannot get it to stop. Denies nausea vomiting or lower abdominal pain. Patient has no other complaints at this time including shortness of breath, chest pain, nausea or vomiting, headache, or visual changes. - Related Data Previous Rx's Medication Instructions Recorded Famotidine [Pepcid] 20 mg PO BID #30 tablet 01/30/19 Allergies Allergy/AdvReac Type Severity Reaction Status Date / Time No Known Allergies Allergy Verified 01/30/19 16:52 Review of Systems ROS Statement: Those systems with pertinent positive or pertinent negative responses have been documented in the HPI. ROS Other: All systems not noted in ROS Statement are negative. Past Medical History Past Medical History: Asthma Additional Past Medical History / Comment(s): bronchitis, "difficulty sleeping" History of Any Multi-Drug Resistant Organisms: None Reported Past Surgical History: Tonsillectomy Additional Past Surgical History / Comment(s): lt hand sx d/t laceration Past Anesthesia/Blood Transfusion Reactions: No Reported Reaction Additional Past Anesthesia/Blood Transfusion Reaction / Comment(s): clausterphobia Past Psychological History: ADD/ADHD Smoking Status: Current every day smoker Past Alcohol Use History: None Reported Past Drug Use History: None Reported - Past Family History Mother History Unknown: Yes Father History Unknown: Yes General Exam Limitations: no limitations General appearance: alert Head exam: Present: atraumatic, normocephalic, normal inspection Eye exam: Present: normal appearance, PERRL, EOMI. Absent: scleral icterus, conjunctival injection, periorbital swelling ENT exam: Present: normal exam, mucous membranes moist Neck exam: Present: normal inspection, full ROM. Absent: tenderness, meningismus, lymphadenopathy Respiratory exam: Present: normal lung sounds bilaterally. Absent: respiratory distress, wheezes, rales, rhonchi, stridor Cardiovascular Exam: Present: regular rate, normal rhythm, normal heart sounds. Absent: systolic murmur, diastolic murmur, rubs, gallop, clicks GI/Abdominal exam: Present: soft, tenderness (Tenderness with guarding in the epigastric area), guarding, normal bowel sounds. Absent: distended, rebound, rigid Course Vital Signs 01/30/19 16:36 Pulse Rate 65 Respiratory 22 Rate Blood Pressure 138/89 O2 Sat by Pulse 100 Oximetry Medical Decision Making - Medical Decision Making 33-year-old male presents to the emergency department for epigastric pain. Kevin barnhart drank a quarter of a bottle of hot sauce for $100 and immediately afterwards started to have burning pain in his upper abdomen. Vitals are stable. On exam patient does have tenderness in the abdomen only in the epigastric area. Nonrigid abdomen. Acute abdomen x-ray was obtained which showed no evidence of a pneumoperitoneum. Patient was given a GI cocktail and Pepcid which did decrease his for pain from a 10 to a 3. Physical exam reevaluated, patient's tenderness has diminished significantly. At this time patient can be discharged home with diagnosis of acute gastritis. He will f ollow up with primary care in 1-2 days or return if he has any worsening symptoms. Patient was prescribed Pepcid . Disposition Clinical Impression: Acute gastritis Disposition: HOME SELF-CARE Condition: Good Instructions (If sedation given, give patient instructions): Gastritis (ED) Additional Instructions: Please follow up with primary care in 1-2 days. If you have worsening or recurrent abdominal pain return to the emergency department. Otherwise take Pepcid as directed. Prescriptions: Famotidine [Pepcid] 20 mg PO BID #30 tablet Is patient prescribed a controlled substance at d/c from ED?: No Referrals: Odin Hagen MD [Primary Care Provider] - 1-2 days Time of Disposition: 18:45
[2019-01-30] MEDS ORDERED: FAMOTIDINE 20 MG TAB PO STA (17:13)
--- NOTE | 2019-01-30 17:54 | XR ---
EXAMINATION TYPE: XR abdomen acute w cxr DATE OF EXAM: 01/30/2019 COMPARISON: Chest x-ray 08/29/2018 HISTORY: Abdominal pain TECHNIQUE: Chest x-ray with supine and upright abdomen FINDINGS: Heart and mediastinum are normal. Lungs are clear. Diaphragm is normal. Bony thorax is intact. Bowel gas pattern is normal. There is no sign of intestinal obstruction or pneumoperitoneum. There is mild thoracolumbar dextroscoliosis. Fecal pattern is normal. There are no calcifications over the right ki dney. There is a 2 mm calcification over the left kidney. IMPRESSION: No active cardiopulmonary disease. Chest x-ray unchanged compared to old exam. Nonacute abdomen. Possible left renal calculus.
[2019-01-30 19:26] VITALS: BP 116/82; PULSE 73; RESP 18; TEMP 97.8
== END 2019-01-30 19:26 | disposition home or self-care (01) ==
LOC: EC 16:35
DX: K29.00 Acute gastritis without bleeding (principal); Z53.8 Procedure and treatment not carried out for other reasons; F17.200 Nicotine dependence, unspecified, uncomplicated
CPT/HCPCS: 74022; 99284

== ENCOUNTER 2019-02-15 15:15 | Emergency (ER) | payer OTHER ==
[2019-02-15 15:23] VITALS: BP 135/90; PULSE 81; RESP 18; TEMP 97.7
[2019-02-15] MEDS ORDERED: ACETAMINOPHEN TAB 325 MG TAB PO STA (15:37)
--- NOTE | 2019-02-15 16:05 | XR ---
EXAMINATION TYPE: XR forearm RT DATE OF EXAM: 02/15/2019 COMPARISON: None HISTORY: Pain after punching wall TECHNIQUE: 2 view right forearm FINDINGS: No acute fractures are evident. The radius aligns normally with the humerus. Soft tissues a re normal. IMPRESSION: 1. Normal right forearm. 2. Follow-up exam can be performed 7-10 days from acute trauma for continued pain.
--- NOTE | 2019-02-15 16:06 | XR ---
EXAMINATION TYPE: XR wrist complete RT DATE OF EXAM: 02/15/2019 COMPARISON: None HISTORY: Pain following punching wall TECHNIQUE: 4 view right wrist FINDINGS: No acute fractures or dislocations are evident. Joint spaces are preserved. Soft tissues ar e normal. Follow-up studies can be performed 7-10 days from acute trauma for continued pain. Nuclear medicine b one scan can be performed for pain at the anatomic snuff box. IMPRESSION: 1. Normal 4 view right wrist
--- NOTE | 2019-02-15 16:07 | XR ---
EXAMINATION TYPE: XR hand complete RT DATE OF EXAM: 02/15/2019 COMPARISON: None HISTORY: Pain after punching wall TECHNIQUE: Three-view right hand FINDINGS: No acute fractures or dislocations are evident. Soft tissues are normal. Joint spaces are p reserved. IMPRESSION: 1. Normal three-view right hand. 2. Follow-up exam can be performed 7-10 days from acute trauma for continued pain.
--- NOTE | 2019-02-15 16:33 | ED ---
General Adult HPI - General Chief complaint: Extremity Injury, Upper Stated complaint: Hand injury Time Seen by Provider: 02/15/19 15:27 Source: patient, RN notes reviewed, old records reviewed Limitations: no limitations - History of Present Illness Initial comments: 33-year-old male patient presents ED chief complaint of hand and wrist injury. Patient reports that approximately 3 days ago he punched a wall, states that now he has pain in the lateral and medial aspect of his wrist as well as radiating up the arm. Denies any other complaints at this time. Systemic: Pt denies fatigue, fever/chills, rash. Pt denies weakness, night sweats, weight loss. Neuro: Pt denies headache, visual disturbances, syncope or pre-syncope. HEENT: Pt denies ocular discharge or irritation, otalgia, rhinorrhea, pharyngitis or notable lymphadenopathy. Cardiopulmonary: Pt denies chest pain, SOB, heart palpitations, dyspnea on exertion. Abdominal/GI: Pt denies abdominal pain, n/v/d. : Pt denies dysuria, burning w/ urination, frequency/urgency. Denies new onset urinary or bowel incontinence. MSK: Pt denies loss of strength or function in extremities. Neuro: Pt denies new onset weakness, paresthesias. - Related Data Previous Rx's Medication Instructions Recorded Famotidine [Pepcid] 20 mg PO BID #30 tablet 01/30/19 Allergies Allergy/AdvReac Type Severity Reaction Status Date / Time No Known Allergies Allergy Verified 02/15/19 15:23 Review of Systems ROS Statement: Those systems with pertinent positive or pertinent negative responses have been documented in the HPI. ROS Other: All systems not noted in ROS Statement are negative. Past Medical History Past Medical History: Asthma Additional Past Medical History / Comment(s): "difficulty sleeping" History of Any Multi-Drug Resistant Organisms: None Reported Past Surgical History: Tonsillectomy Additional Past Surgical History / Comment(s): lt hand sx d/t laceration Past Anesthesia/Blood Transfusion Reactions: No Reported Reaction Additional Past Anesthesia/Blood Transfusion Reaction / Comment(s): clausterphobia Past Psychological History: ADD/ADHD Smoking Status: Current every day smoker Past Alcohol Use History: None Reported Past Drug Use History: Methamphetamine - Past Family History Mother History Unknown: Yes Father History Unknown: Yes General Exam - General Exam Comments Initial Comments: Constitutional: NAD, AOX3, Pt has pleasant affect. HEENT: NC/AT, trachea midline, neck supple, no lymphadenopathy. Posterior pharynx non erythematous, without exudates. External ears appear normal, without discharge. Mucous membranes moist. Eyes PERRLA, EOM intact. There is no scleral icterus. No pallor noted. Cardiopulmonary: RRR, no murmurs, rubs or gallops, no JVD noted. Lungs CTAB in anterior and posterior aburto. No peripheral edema. Abdominal exam: Abdomen soft and non-distended. Abdomen non-tender to palpation in all 4 quadrants. Bowel sounds active in LLQ. No hepatosplenomegaly. No ecchymosis Neuro: CN II-XII grossly intact. No nuchal rigidity. No raccon eyes, no strauss sign, no hemotympanum. No cervical spinal tenderness. MSK: Medial and lateral aspect of wrist nontender palpation. Proximal tenderness present. Handgrip intact. Sensation intact, capillary refill less than 2 seconds. Radial pulse +2. Thumb spica splint placed, patient neurovascularly intact after splint placement. No posterior calf tenderness bilaterally, homans sign negative bilaterally. Posterior tibialis and radial pulse +2 bilaterally. Sensation intact in upper and lower extremities. Full active ROM in upper and lower extremities, 5/5 stregnth. Limitations: no limitations Course Vital Signs 02/15/19 15:19 Temperature 97.7 F Pulse Rate 81 Respiratory 18 Rate Blood Pressure 135/90 O2 Sat by Pulse 99 Oximetry Medical Decision Making - Medical Decision Making 33-year-old male patient presents ED chief complaint of hand and wrist injury. Patient reports that approximately 3 days ago he punched a wall, states that now he has pain in the lateral and medial aspect of his wrist as well as radiating up the arm. Denies any other complaints at this time. Pt VSS, afebrile. Physical exam displayed: Medial and lateral aspect of wrist nontender palpation. Proximal tenderness present. Handgrip intact. Sensation intact, capillary refill less than 2 seconds. Radial pulse +2. Thumb spica splint placed, patient neurovascularly intact after splint placement. Plain films did not display any acute process. Patient discharged in thumb spica splint with orthopedic follow-up. Case discussed with Dr. Gibbs. Disposition Clinical Impression: Wrist sprain Disposition: HOME SELF-CARE Condition: Stable Instructions (If sedation given, give patient instructions): Wrist Injury (ED) Additional Instructions: Patient to adhere to previously discussed treatment plan and will take medication(s) as directed. Patient to follow up with PCP in 1-2 days. Patient to return to ED if symptoms do not improve. Follow up with orthopedic consult, continue to wear splint. Retunr to ER if condition worsens. Is patient prescribed a controlled substance at d/c from ED?: No Referrals: Odin Hagen MD [Primary Care Provider] - 1-2 days Ravi Cedeno DO [Doctor of Osteopathic Medicine] - 1-2 days
== END 2019-02-15 16:40 | disposition home or self-care (01) ==
LOC: EC 15:15
DX: S63.501A Unspecified sprain of right wrist, initial encounter (principal); F17.200 Nicotine dependence, unspecified, uncomplicated; W22.8XXA Striking against or struck by other objects, initial encounter
CPT/HCPCS: 29125; 99284

== ENCOUNTER 2019-04-01 23:06 | Emergency (ER) | payer OTHER ==
[2019-04-01] MEDS ORDERED: KETOROLAC 30 MG/ML 1 ML VIAL IVP STA (23:22)
[2019-04-01] MEDS ORDERED: PANTOPRAZOLE 40 MG/10 ML VIAL IVP STA (23:22)
[2019-04-01] MEDS ORDERED: SODIUM CHLORIDE 0.9% 1,000 ML IV STA ×2 (23:22)
[2019-04-01] MEDS ORDERED: ONDANSETRON 4 MG/2 ML VIAL IVP STA (23:22)
--- NOTE | 2019-04-01 23:29 | ED ---
Abdominal Pain HPI - General Chief Complaint: Abdominal Pain Stated Complaint: Abd Pain/Nausea/Rash Time Seen by Provider: 04/01/19 23:12 Source: patient, RN notes reviewed, old records reviewed Mode of arrival: ambulatory Limitations: no limitations - History of Present Illness Initial Comments: Is a 33-year-old male the ER for evaluation of persistent nausea vomiting persistent nausea vomiting epigastric abdominal pain. Patient also does appear to have tinea-like rash anterior abdomen. Patient is recently a new apartment. No other significant medical illness. Patient is asked opiate abuser he's been clear for a few months now. Patient denying illicit drug abuse. No fevers. No diarrhea. Decreased appetite for about a week now MD Complaint: abdominal pain, other (Nausea vomiting) -: week(s) Location: epigastric Radiation: epigastric Migration to: epigastric Severity: mild Severity scale (1-10): 3 Quality: cramping Consistency: constant Improves With: nothing Worsens With: vomiting Associated Symptoms: nausea, vomiting - Related Data Home Medications Medication Instructions Recorded Confirmed No Known Home Medications 04/01/19 04/01/19 Allergies Allergy/AdvReac Type Severity Reaction Status Date / Time No Known Allergies Allergy Verified 04/01/19 23:23 Review of Systems ROS Statement: Those systems with pertinent positive or pertinent negative responses have been documented in the HPI. ROS Other: All systems not noted in ROS Statement are negative. Past Medical History Past Medical History: Asthma Additional Past Medical History / Comment(s): "difficulty sleeping" History of Any Multi-Drug Resistant Organisms: None Reported Past Surgical History: Tonsillectomy Additional Past Surgical History / Comment(s): lt hand sx d/t laceration Past Anesthesia/Blood Transfusion Reactions: No Reported Reaction Additional Past Anesthesia/Blood Transfusion Reaction / Comment(s): clausterphobia Past Psychological History: ADD/ADHD Smoking Status: Current every day smoker Past Alcohol Use History: None Reported Past Drug Use History: Methamphetamine - Past Family History Mother History Unknown: Yes Father History Unknown: Yes General Exam Limitations: no limitations General appearance: alert, in no apparent distress Head exam: Present: atraumatic, normocephalic, normal inspection Eye exam: Present: normal appearance, PERRL, EOMI. Absent: scleral icterus, conjunctival injection, periorbital swelling ENT exam: Present: normal exam, mucous membranes dry Neck exam: Present: normal inspection. Absent: tenderness, meningismus, lymphadenopathy Respiratory exam: Present: normal lung sounds bilaterally. Absent: respiratory distress, wheezes, rales, rhonchi, stridor Cardiovascular Exam: Present: normal rhythm, tachycardia, normal heart sounds. Absent: systolic murmur, diastolic murmur, rubs, gallop, clicks GI/Abdominal exam: Present: soft, normal bowel sounds. Absent: distended, tenderness, guarding, rebound, rigid Extremities exam: Present: normal inspection, full ROM, normal capillary refill. Absent: tenderness, pedal edema, joint swelling, calf tenderness Back exam: Present: normal inspection Neurological exam: Present: alert, oriented X3, CN II-XII intact Psychiatric exam: Present: normal affect, normal mood Skin exam: Present: warm, dry, intact, normal color, other (Patient does tinea rash to abdomen). Absent: rash Course Vital Signs 04/01/19 23:08 Temperature 97.5 F L Pulse Rate 109 H Respiratory 20 Rate Blood Pressure 125/93 O2 Sat by Pulse 99 Oximetry - Reevaluation(s) Reevaluation #1: 04/02/19 00:01 Record is reviewed Reevaluation #2: 04/02/19 00:01 Abdomen is improved Medical Decision Making - Medical Decision Making 33 male to the ED co [place] [facility] with abdominal rash for Tinea and ok for discharge Disposition Clinical Impression: Abdominal pain, Nausea & vomiting Disposition: HOME SELF-CARE Condition: Good Instructions (If sedation given, give patient instructions): Acute Abdominal Pain (DC), Acute Nausea and Vomiting (ED), Tinea Corporis (ED) Is patient prescribed a controlled substance at d/c from ED?: No Referrals: Odin Hagen MD [Primary Care Provider] - 1-2 days
[2019-04-02] MEDS ORDERED: ONDANSETRON 4 MG ODT STARTER PACK 2 TAB BTL PO STA (00:03)
[2019-04-02 00:28] LABS: Basophils # (A) 0.1 k/uL (0-0.2); Basophils % (A) 2 %; Eosinophils # (A) 0.1 k/uL (0-0.7); Eosinophils % (A) 1 %; HCT 44.4 % (39.0-53.0); HGB 15.4 gm/dL (13.0-17.5); Lymphocytes # (A) 1.3 k/uL (1.0-4.8); Lymphocytes % (A) 19 %; MCH 30.9 pg (25.0-35.0); MCHC 34.7 g/dL (31.0-37.0); Mean Platelet Volume 5.9; Monocytes # (A) 0.5 k/uL (0-1.0); Monocytes % (A) 7 %; Neutrophils # (A) 4.8 k/uL (1.3-7.7); Neutrophils % (A) 70 %; Platelet Count 217 k/uL (150-450); RBC 4.99 m/uL (4.30-5.90); RDW 12.5 % (11.5-15.5); WBC 6.9 k/uL (3.8-10.6)
[2019-04-02 00:40] LABS: Albumin 5.1 g/dL (3.5-5.0); Potassium 4.5 mmol/L (3.5-5.1); Total Bilirubin 0.6 mg/dL (0.2-1.3); Total Protein 8.3 g/dL (6.3-8.2)
[2019-04-02 01:00] VITALS: BP 130/90; PULSE 98; RESP 18; TEMP 98
[2019-04-02] MEDS ORDERED: NYSTATIN 100,000UNIT/GM CREAM 30 GM TUBE TOPICAL SCH (09:00)
== END 2019-04-02 01:19 | disposition home or self-care (01) ==
LOC: EC 23:06
DX: R10.13 Epigastric pain (principal); R11.2 Nausea with vomiting, unspecified; B35.9 Dermatophytosis, unspecified; R00.0 Tachycardia, unspecified; F17.200 Nicotine dependence, unspecified, uncomplicated
CPT/HCPCS: 36415; 80053; 82150; 83690; 85025; 99284; 96374; 96375 ×2; 96361; J2405; J1885; S0119; C9113

== ENCOUNTER 2019-06-24 06:34 | Emergency (ER) | payer OTHER ==
[2019-06-24 06:50] VITALS: BP 129/93; PULSE 83; RESP 16; TEMP 98.3
[2019-06-24] MEDS ORDERED: PROPARACAINE 0.5% OPHTH DROPS 15 ML BTL BOTH EYES STA (07:07)
[2019-06-24] MEDS ORDERED: TOBRAMYCIN 0.3% OPHTH DROPS 5 ML BTL BOTH EYES STA (07:09)
--- NOTE | 2019-06-24 07:11 | ED ---
Eye Problem HPI - General Chief complaint: Eye Problems Stated complaint: Eye Problems Time Seen by Provider: 06/24/19 06:54 Source: patient, RN notes reviewed, old records reviewed Mode of arrival: ambulatory Limitations: no limitations - History of Present Illness Initial comments: Patient is a 33-year-old male presents emergency department today with bilateral eye drainage and irritation. Patient reports that he believes is related to ALLERGIES as he recently got his girlfriend a cat. Patient reports that he has had no specific eye pain. Patient denies any history of sick contacts. Denies any fevers or chills. He denies any visual changes. Patient does not request or contacts. He states that this morning he He awoke he had bilateral eye crusting. - Related Data Previous Rx's Medication Instructions Recorded Azithromycin [Zithromax Z-pack] 0 mg PO DIRECTED #1 pack 04/02/19 Ketotifen 0.025% Ophth Soln 1 drop BOTH EYES BID #1 bottle 06/24/19 [Zaditor] Tobramycin 0.3% Ophth Soln [Tobrex 1 drop BOTH EYES Q4H #1 bottle 06/24/19 0.3% Ophth Soln] Allergies Allergy/AdvReac Type Severity Reaction Status Date / Time No Known Allergies Allergy Verified 06/24/19 06:50 Review of Systems ROS Statement: Those systems with pertinent positive or pertinent negative responses have been documented in the HPI. ROS Other: All systems not noted in ROS Statement are negative. Past Medical History Past Medical History: Asthma Additional Past Medical History / Comment(s): "difficulty sleeping" History of Any Multi-Drug Resistant Organisms: None Reported Past Surgical History: Tonsillectomy Additional Past Surgical History / Comment(s): lt hand sx d/t laceration Past Anesthesia/Blood Transfusion Reactions: No Reported Reaction Additional Past Anesthesia/Blood Transfusion Reaction / Comment(s): clausterphobia Past Psychological History: ADD/ADHD Smoking Status: Current every day smoker Past Alcohol Use History: None Reported Past Drug Use History: Methamphetamine - Past Family History Mother History Unknown: Yes Father History Unknown: Yes General Exam Limitations: no limitations General appearance: alert Head exam: Present: atraumatic, normocephalic, normal inspection Eye exam: Present: normal appearance, PERRL, EOMI, conjunctival injection (Minimal conjunctival injection,purulent bilateral drainage. ). Absent: scleral icterus, periorbital swelling ENT exam: Present: normal exam, mucous membranes moist Neck exam: Present: normal inspection. Absent: tenderness, meningismus, lymphadenopathy Respiratory exam: Present: normal lung sounds bilaterally. Absent: respiratory distress, wheezes, rales, rhonchi, stridor Cardiovascular Exam: Present: regular rate, normal rhythm, normal heart sounds. Absent: systolic murmur, diastolic murmur, rubs, gallop, clicks GI/Abdominal exam: Present: soft, normal bowel sounds. Absent: distended, tenderness, guarding, rebound, rigid Extremities exam: Present: normal inspection, full ROM, normal capillary refill. Absent: tenderness, pedal edema, joint swelling, calf tenderness Back exam: Present: normal inspection Neurological exam: Present: alert, oriented X3, CN II-XII intact Psychiatric exam: Present: normal affect, normal mood Skin exam: Present: warm, dry, intact, normal color. Absent: rash Course Vital Signs 06/24/19 06:44 Temperature 98.3 F Pulse Rate 83 Respiratory 16 Rate Blood Pressure 129/93 O2 Sat by Pulse 98 Oximetry Medical Decision Making - Medical Decision Making 33-year-old female presented today [id number] for concern for bilateral conjunctival injection, he and irritation. He believes that this is related to the posterior new cat. At this time patient's foreseen eye exam shows no retained foreign bodies or corneal ulcers. He does have some minimal conjunctival irritation and drainage noted. Discussed at this time possibility of ALLERGY related and can be prescribed Zaditor. I discussed with the persistent purulent drainage leading cover for bacterial conjunctivitis at this time as well. Patient was given Tobrex prescription. Discussed return parameters and ophthalmology follow-up. Disposition Clinical Impression: Conjunctivitis Disposition: HOME SELF-CARE Condition: Good Instructions (If sedation given, give patient instructions): Conjunctivitis (ED) Additional Instructions: Patient advised to follow-up with ophthalmology if symptoms continue to persist. Using the antibiotic drops every 4 hours as added eardrops. Recommended dosing Benadryl and irritation for concern for ALLERGY. Return to emergency department if any alarming signs or symptoms occur. Prescriptions: Tobramycin 0.3% Ophth Soln [Tobrex 0.3% Ophth Soln] 1 drop BOTH EYES Q4H #1 bottle Ketotifen 0.025% Ophth Soln [Zaditor] 1 drop BOTH EYES BID #1 bottle Is patient prescribed a controlled substance at d/c from ED?: No Referrals: Katelynn Soto MD [Primary Care Provider] - 1-2 days Jermain Matthew MD [STAFF PHYSICIAN] - 1-2 days Elias Garduno MD [STAFF PHYSICIAN] - 1-2 days Time of Disposition: 07:35
== END 2019-06-24 07:46 | disposition home or self-care (01) ==
LOC: EC 06:34
DX: H10.9 Unspecified conjunctivitis (principal); F17.200 Nicotine dependence, unspecified, uncomplicated
CPT/HCPCS: 99283

== ENCOUNTER 2020-07-31 15:33 | Emergency (ER) | payer OTHER ==
[2020-07-31 15:39] VITALS: TEMP 97.4
[2020-07-31] MEDS ORDERED: HYDROmorphone 1 MG/ML 1 ML SYRINGE IM STA (16:00)
--- NOTE | 2020-07-31 16:28 | XR ---
EXAMINATION TYPE: XR lumbosacral spine min 4V DATE OF EXAM: 07/31/2020 CLINICAL HISTORY: Left-sided back pain radiating into left leg after injury one week ago. TECHNIQUE: Frontal, lateral, and oblique images of the lumbar spine are obtained. 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 Dextroconvex scoliotic curvature centered at T12 level redemonstrated. No acute fracture or di slocation is seen. Moderate to severe narrowing at L5-S1 level otherwise vertebral body heights and d isc space heights maintained. Oblique images appear within normal limits. Overlying soft tissue is un remarkable. IMPRESSION: As above.
[2020-07-31] MEDS ORDERED: predniSONE 20 MG TAB PO STA (16:53)
--- NOTE | 2020-07-31 16:56 | ED ---
Back Pain HPI - General Chief Complaint: Back Pain/Injury Stated Complaint: Back pain Time Seen by Provider: 07/31/20 15:35 Source: patient Limitations: no limitations - History of Present Illness Initial Comments: The patient is a 34-year-old male with past medical history of asthma who presents to the emergency department with reported back pain. Patient states that he smoked marijuana last week and ended up having an incident where he passed out. He fell and hit his low back. Since then he has had pain in his lumbar region with radiation down his left leg area and states he's been taking Motrin without improvement in his symptoms. Denies any weakness, numbness or tingling in his leg. Denies saddle anesthesia. No bowel or bladder incontinence. Patient denies any headaches or visual changes. No neck pain or stiffness. Patient denied have any chest pain or trouble breathing prior to the incident. No other alleviating, precipitating or modifying factors. - Related Data Previous Rx's Medication Instructions Recorded HYDROcodone/APAP 7.5-325MG [[place] 1 tab PO Q6HR PRN 3 Days #12 tab 07/31/20 7.5-325] predniSONE [Deltasone] 20 mg PO BID #10 tab 07/31/20 Allergies Allergy/AdvReac Type Severity Reaction Status Date / Time cat dander Allergy Dyspnea Verified 07/31/20 16:36 grass pollen Allergy Dyspnea Verified 07/31/20 16:36 Review of Systems ROS Statement: Those systems with pertinent positive or pertinent negative responses have been documented in the HPI. ROS Other: All systems not noted in ROS Statement are negative. Past Medical History Past Medical History: Asthma Additional Past Medical History / Comment(s): "difficulty sleeping" History of Any Multi-Drug Resistant Organisms: None Reported Past Surgical History: Tonsillectomy Additional Past Surgical History / Comment(s): lt hand sx d/t laceration Past Anesthesia/Blood Transfusion Reactions: No Reported Reaction Additional Past Anesthesia/Blood Transfusion Reaction / Comment(s): clausterphobia Past Psychological History: ADD/ADHD Smoking Status: Current every day smoker Past Alcohol Use History: None Reported Past Drug Use History: Methamphetamine - Past Family History Mother History Unknown: Yes Father History Unknown: Yes General Exam Limitations: no limitations General appearance: alert, in no apparent distress Head exam: Present: atraumatic, normocephalic, normal inspection Eye exam: Present: normal appearance, PERRL, EOMI. Absent: scleral icterus, conjunctival injection, periorbital swelling ENT exam: Present: normal exam, mucous membranes moist Neck exam: Present: normal inspection. Absent: tenderness, meningismus, lymphadenopathy Respiratory exam: Present: normal lung sounds bilaterally. Absent: respiratory distress, wheezes, rales, rhonchi, stridor Cardiovascular Exam: Present: regular rate, normal rhythm, normal heart sounds. Absent: systolic murmur, diastolic murmur, rubs, gallop, clicks GI/Abdominal exam: Present: soft, normal bowel sounds. Absent: distended, tenderness, guarding, rebound, rigid Extremities exam: Present: normal inspection, full ROM, normal capillary refill, other (5/5 muscle strength in the b/l le). Absent: tenderness, pedal edema, joint swelling, calf tenderness Back exam: Present: paraspinal tenderness (L4-S1) Neurological exam: Present: alert, oriented X3, CN II-XII intact Psychiatric exam: Present: normal affect, normal mood Skin exam: Present: warm, dry, intact, normal color. Absent: rash Course Vital Signs 07/31/20 07/31/20 15:35 17:14 Temperature 97.4 F L Pulse Rate 98 84 Respiratory 20 18 Rate Blood Pressure 115/84 124/84 O2 Sat by Pulse 98 98 Oximetry Medical Decision Making - Medical Decision Making On arrival patient is placed into room 23. A thorough history and physical exam is performed. The patient was sent for a x-ray because of his known trauma which demonstrates no acute fracture. Moderate to severe narrowing at L5-S1. Patient was given 1 mg of Dilaudid and 60 mg prednisone. Results are discussed with patient. Refusing any evaluation of his syncopal episode and requesting to be seen for this back pain. Patient will be given a prescription for prednisone and [place]. Instructed to follow up with his primary care doctor in regards to his symptoms. Return to the emergency room for any worsening symptoms. patient was discharged home in stable condition Disposition Clinical Impression: Back pain, Lumbar radiculopathy, acute Disposition: HOME SELF-CARE Condition: Stable Instructions (If sedation given, give patient instructions): Acute Low Back Pain (ED), Lumbar Radiculopathy (ED) Additional Instructions: Rest and place warm compresses to the site. No heavy lifting or bending. Take the medications as directed. Follow up with your primary care doctor in 2-4 days. Return to the emergency room for any new or worsening symptoms Prescriptions: predniSONE [Deltasone] 20 mg PO BID #10 tab HYDROcodone/APAP 7.5-325MG [[place] 7.5-325] 1 tab PO Q6HR PRN 3 Days #12 tab PRN Reason: Pain Is patient prescribed a controlled substance at d/c from ED?: Yes When asked, does pt state using other controlled substances?: No If prescribed controlled substance>3 days was MAPS reviewed?: Prescribed <3 Days If opioid is for acute pain is fill amount 7 days or less?: Yes If Rx opioid, was Start Talking consent form obtained?: Yes Referrals: Katelynn Soto MD [Primary Care Provider] - 1-2 days Time of Disposition: 16:56
[2020-07-31 17:14] VITALS: BP 124/84; PULSE 84; RESP 18
== END 2020-07-31 17:14 | disposition home or self-care (01) ==
LOC: EC 15:33
DX: M54.16 Radiculopathy, lumbar region (principal); J45.909 Unspecified asthma, uncomplicated; F17.200 Nicotine dependence, unspecified, uncomplicated; W19.XXXA Unspecified fall, initial encounter
CPT/HCPCS: 72110; 99283; 96372; J1170; J7512

== ENCOUNTER 2020-10-29 05:06 | Emergency (ER) | payer OTHER ==
[2020-10-29 05:11] VITALS: TEMP 97.4
[2020-10-29] MEDS ORDERED: SODIUM CHLORIDE 0.9% 1,000 ML IV STA (06:15)
[2020-10-29] MEDS ORDERED: ONDANSETRON 4 MG/2 ML VIAL IVP STA (06:15)
--- NOTE | 2020-10-29 06:31 | ED ---
General Adult HPI - General Chief complaint: Back Pain/Injury Stated complaint: back pain Time Seen by Provider: 10/29/20 05:17 Source: patient, family, RN notes reviewed Mode of arrival: ambulatory Limitations: no limitations - History of Present Illness Initial comments: Patient is a 34-year-old male that presents to the emergency department complaining of abdominal pain. He found 2 pills on the floor of his car which she put back in his flank and bottle and then took this morning. He noted that after taking these 2 pills he became tired bothering him and I'll sleep according to his girlfriend. He notes that he tried making himself vomit andreea ral times to fern picker the medication. He was in mild discomfort but no pain while sitting up in bed during the exam and interview. He did note that he had some generalized abdominal pain. He declined need for any pain medication this time as she did not want to take anymore just in case what he found an tube was norco. He denied any chest pain shortness of breath headache diarrhea constipation fever fatigue chills hematochezia melena or hematemesis. - Related Data Previous Rx's Medication Instructions Recorded HYDROcodone/APAP 7.5-325MG [[place] 1 tab PO Q6HR PRN 3 Days #12 tab 07/31/20 7.5-325] predniSONE [Deltasone] 20 mg PO BID #10 tab 07/31/20 Allergies Allergy/AdvReac Type Severity Reaction Status Date / Time cat dander Allergy Dyspnea Verified 10/29/20 05:11 grass pollen Allergy Dyspnea Verified 10/29/20 05:11 Review of Systems ROS Statement: Those systems with pertinent positive or pertinent negative responses have been documented in the HPI. ROS Other: All systems not noted in ROS Statement are negative. Past Medical History Past Medical History: Asthma Additional Past Medical History / Comment(s): "difficulty sleeping" History of Any Multi-Drug Resistant Organisms: None Reported Past Surgical History: Tonsillectomy Additional Past Surgical History / Comment(s): lt hand sx d/t laceration Past Anesthesia/Blood Transfusion Reactions: No Reported Reaction Additional Past Anesthesia/Blood Transfusion Reaction / Comment(s): clausterphobia Past Psychological History: ADD/ADHD, Bipolar Smoking Status: Current every day smoker Past Alcohol Use History: Occasional Past Drug Use History: Marijuana, Methamphetamine - Past Family History Mother History Unknown: Yes Father History Unknown: Yes General Exam Limitations: no limitations General appearance: alert, in no apparent distress Head exam: Present: atraumatic, normocephalic, normal inspection Eye exam: Present: normal appearance, PERRL, EOMI. Absent: scleral icterus, conjunctival injection, periorbital swelling Neck exam: Present: normal inspection Respiratory exam: Present: normal lung sounds bilaterally. Absent: respiratory distress, wheezes, rales, rhonchi, stridor Cardiovascular Exam: Present: regular rate, normal rhythm, normal heart sounds. Absent: systolic murmur, diastolic murmur, rubs, gallop, clicks GI/Abdominal exam: Present: soft, tenderness (Generalized mostly in the middle abdomen.), normal bowel sounds. Absent: distended, guarding, rebound, rigid Extremities exam: Present: normal inspection, full ROM, normal capillary refill. Absent: tenderness, pedal edema, joint swelling, calf tenderness Neurological exam: Present: alert, oriented X3 Psychiatric exam: Present: normal affect, normal mood Skin exam: Present: warm, dry, intact, normal color. Absent: rash Course Vital Signs 10/29/20 10/29/20 05:06 08:52 Temperature 97.4 F L Pulse Rate 91 74 Respiratory 20 18 Rate Blood Pressure 122/84 117/76 O2 Sat by Pulse 100 100 Oximetry - Reevaluation(s) Reevaluation #1: 10/29/20 08:33 Upon reevaluation patient states that he is feeling better, but still does have some abdominal discomfort. He was informed that CT showed a small kidney stone. Medical Decision Making - Medical Decision Making 34-year-old male complaining of abdominal pain with nausea and vomiting after taking 2 pills of unknown name that he found in his car. Labs, KUB, 1 L normal saline, 4 mg of Zofran ordered. Labs unremarkable. Urinalysis unremarkable. Drug screen shows positive results for opiates, methamphetamines, amphetamines, THC. Case discussed with Dr. Goldstein, patient discharge home with follow-up to primary care. - Lab Data Result diagrams: 10/29/20 06:27 10/29/20 06:27 Lab Results 10/29/20 10/29/20 10/29/20 Range/Units 06:27 06: 06:27 WBC 5.3 (3.8-10.6) k/uL RBC 4.67 (4.30-5.90) m/uL Hgb 14.7 (13.0-17.5) gm/dL Hct 42.0 (39.0-53.0) % MCV 89.9 (80.0-100.0) fL MCH 31.6 (25.0-35.0) pg MCHC 35.1 (31.0-37.0) g/dL RDW 12.2 (11.5-15.5) % Plt Count 171 (150-450) k/uL MPV 7.4 Neutrophils % 59 % Lymphocytes % 30 % Monocytes % 7 % Eosinophils % 1 % Basophils % 1 % Neutrophils # 3.1 (1.3-7.7) k/uL Lymphocytes # 1.6 (1.0-4.8) k/uL Monocytes # 0.4 (0-1.0) k/uL Eosinophils # 0.1 (0-0.7) k/uL Basophils # 0.1 (0-0.2) k/uL Sodium 137 (137-145) mmol/L Potassium 4.2 (3.5-5.1) mmol/L Chloride 100 (98-107) mmol/L Carbon Dioxide 33 H (22-30) mmol/L Anion Gap 4 mmol/L BUN 14 (9-20) mg/dL Creatinine 1.04 (0.66-1.25) mg/dL Est GFR (CKD-EPI)AfAm >90 (>60 ml/min/1.73 sqM) Est GFR (CKD-EPI)NonAf >90 (>60 ml/min/1.73 sqM) Glucose 108 H (74-99) mg/dL Calcium 9.5 (8.4-10.2) mg/dL Total Bilirubin 0.5 (0.2-1.3) mg/dL AST 20 (17-59) U/L ALT 17 (4-49) U/L Alkaline Phosphatase 67 (38-126) U/L Total Protein 6.8 (6.3-8.2) g/dL Albumin 4.4 (3.5-5.0) g/dL Amylase 54 (30-110) U/L Lipase 34 (23-300) U/L Urine Color Light Yellow Urine Appearance Clear (Clear) Urine pH 7.0 (5.0-8.0) Ur Specific [place] 1.008 (1.001-1.035) Urine Protein Negative (Negative) Urine Glucose (UA) Negative (Negative) Urine Ketones Negative (Negative) Urine Blood Negative (Negative) Urine Nitrite Negative (Negative) Urine Bilirubin Negative (Negative) Urine Urobilinogen <2.0 (<2.0) mg/dL Ur Leukocyte Esterase Negative (Negative) Urine Opiates Screen Detected H (NotDetected) Ur Oxycodone Screen Not Detected (NotDetected) Urine Methadone Screen Not Detected (NotDetected) Ur Propoxyphene Screen Not Detected (NotDetected) Ur Barbiturates Screen Not Detected (NotDetected) U Tricyclic Antidepress Not Detected (NotDetected) Ur Phencyclidine Scrn Not Detected (NotDetected) Ur Amphetamines Screen Detected H (NotDetected) U Methamphetamines Scrn Detected H (NotDetected) U Benzodiazepines Scrn Not Detected (NotDetected) Urine Cocaine Screen Not Detected (NotDetected) U Marijuana (THC) Screen Detected H (NotDetected) - Radiology Data Radiology results: report reviewed, image reviewed KUB: Renal calcification projecting over the left kidney suggestive left renal calculi measuring about 2 mm. Nonspecific nonobstructive bowel gas pattern. Disposition Clinical Impression: Polysubstance abuse, Kidney stone, Abdominal pain Disposition: HOME SELF-CARE Condition: Stable Instructions (If sedation given, give patient instructions): Abdominal Pain (ED), Polysubstance Abuse (ED) Additional Instructions: Please return to the Emergency Department if symptoms worsen or any other concerns. Follow-up with primary care next 3-5 days. Avoid taking pills of unknown type. Increase oral fluids and take Motrin for kidney stone, it should pass on its own. Is patient prescribed a controlled substance at d/c from ED?: No Referrals: Katelynn Soto MD [Primary Care Provider] - 1-2 days Time of Disposition: 09:11
[2020-10-29 06:37] LABS: Basophils # (A) 0.1 k/uL (0-0.2); Basophils % (A) 1 %; Eosinophils # (A) 0.1 k/uL (0-0.7); Eosinophils % (A) 1 %; HGB 14.7 gm/dL (13.0-17.5); Lymphocytes # (A) 1.6 k/uL (1.0-4.8); Lymphocytes % (A) 30 %; MCH 31.6 pg (25.0-35.0); MCHC 35.1 g/dL (31.0-37.0); MCV 89.9 fL (80.0-100.0); Mean Platelet Volume 7.4; Monocytes # (A) 0.4 k/uL (0-1.0); Monocytes % (A) 7 %; Neutrophils # (A) 3.1 k/uL (1.3-7.7); Neutrophils % (A) 59 %; Platelet Count 171 k/uL (150-450); RBC 4.67 m/uL (4.30-5.90); RDW 12.2 % (11.5-15.5); WBC 5.3 k/uL (3.8-10.6)
[2020-10-29 06:47] LABS: ALT 17 U/L (4-49); AST 20 U/L (17-59); African American GFR (CKD) >90 (>60 ml/min/1.73 sqM); Albumin 4.4 g/dL (3.5-5.0); Alkaline Phosphatase 67 U/L (38-126); Amylase 54 U/L (30-110); Anion Gap 4 mmol/L; Blood Urea Nitrogen 14 mg/dL (9-20); Calcium 9.5 mg/dL (8.4-10.2); Carbon Dioxide 33 mmol/L (22-30); Chloride 100 mmol/L (98-107); Glucose 108 mg/dL (74-99); Lipase 34 U/L (23-300); Non-African American GFR(CKD) >90 (>60 ml/min/1.73 sqM); Potassium 4.2 mmol/L (3.5-5.1); Sodium 137 mmol/L (137-145); Total Bilirubin 0.5 mg/dL (0.2-1.3); Total Protein 6.8 g/dL (6.3-8.2)
--- NOTE | 2020-10-29 07:41 | XR ---
EXAMINATION TYPE: XR KUB DATE OF EXAM: 10/29/2020 7:31 AM CLINICAL HISTORY: Abdominal pain TECHNIQUE: Single supine KUB image of the abdomen is obtained. COMPARISON: None. FINDINGS: There are a few punctate 2 mm calcified lesion projecting over the left kidney. These may r epresent renal calculi. There is a nonspecific, nonobstructive bowel gas pattern. Stool and gas are s een throughout the colon and within the rectum. Lung bases are clear. Osseous structures are unremark able. IMPRESSION: 1. Renal calcification projecting over the left kidney suggestive of left renal calculi measuring up to 2 mm. 2. Nonspecific, nonobstructive bowel gas pattern.
[2020-10-29 08:37] LABS: Appearance,Urine Clear (Clear); Bilirubin,Urine Negative (Negative); Blood,Urine Negative (Negative); Color,Urine Light Yellow; Glucose,Urine (UA) Negative (Negative); Ketones,Urine Negative (Negative); Leukocyte Esterase,Urine Negative (Negative); Nitrite,Urine Negative (Negative); Protein,Urine Negative (Negative); Specific Gravity,Urine 1.008 (1.001-1.035); Urobilinogen,Urine <2.0 mg/dL (<2.0)
[2020-10-29 08:54] VITALS: BP 117/76; PULSE 74; RESP 18
[2020-10-29 09:06] LABS: Amphetamine Screen,Urine Detected (NotDetected); Barbiturate Screen,Urine Not Detected (NotDetected); Benzodiazepines Screen,Urine Not Detected (NotDetected); Cocaine Screen,Urine Not Detected (NotDetected); Methadone Screen, Urine Not Detected (NotDetected); Opiate Screen,Urine Detected (NotDetected); Oxycodone Screen, Urine Not Detected (NotDetected); Phencyclidine Screen,Urine Not Detected (NotDetected); Tricyclic Antidepressant,Urine Not Detected (NotDetected); Urn Cannabinoid Scrn Detected (NotDetected)
== END 2020-10-29 09:21 | disposition home or self-care (01) ==
LOC: EC 05:06
DX: F15.10 Other stimulant abuse, uncomplicated (principal); F12.10 Cannabis abuse, uncomplicated; F11.10 Opioid abuse, uncomplicated; N20.0 Calculus of kidney; F17.200 Nicotine dependence, unspecified, uncomplicated; J45.909 Unspecified asthma, uncomplicated; Z91.048 Other nonmedicinal substance allergy status
CPT/HCPCS: 99284 ×2; 36415; 80053; 82150; 83690; 85025; 81003; 80306; 74018; 96374; 96361; J2405

== ENCOUNTER 2021-01-19 02:23 | Emergency (ER) | payer OTHER ==
[2021-01-19 02:37] VITALS: BP 147/98; PULSE 75; RESP 16; TEMP 97.8
[2021-01-19] MEDS ORDERED: OFLOXACIN 0.3% OPHTH DROPS 5 ML BOTTLE LEFT EAR STA (02:49)
[2021-01-19] MEDS ORDERED: IBUPROFEN 600 MG STARTER PACK 4 TAB BTL PO STA (02:50)
[2021-01-19] MEDS ORDERED: AMOXIC-POT CLAV 875MG STARTER PACK 2 TAB BTL PO STA (02:50)
--- NOTE | 2021-01-19 03:07 | ED ---
General Adult HPI - General Chief complaint: ENT Stated complaint: Earache Time Seen by Provider: 01/19/21 02:34 Source: patient Mode of arrival: ambulatory Limitations: no limitations - History of Present Illness Initial comments: 35-year-old male presents to the emergency room for a chief complaint of left ear pain. Patient states he has had left ear pain and itchiness for the past month. Patient was camping this weekend and was swimming a lot and the pain worsened.denies fevers. Denies difficulty hearing. Patient has no other complaints at this time including shortness of breath, chest pain, abdominal pain, nausea or vomiting, headache, or visual changes. - Related Data Previous Rx's Medication Instructions Recorded HYDROcodone/APAP 7.5-325MG [[place] 1 tab PO Q6HR PRN 3 Days #12 tab 07/31/20 7.5-325] predniSONE [Deltasone] 20 mg PO BID #10 tab 07/31/20 Amoxicillin 875 mg PO Q12HR #20 tablet 01/19/21 Ofloxacin 0.3% Ophth Soln [Ocuflox 10 drops LEFT EAR DAILY 10 Days 01/19/21 Ophth Soln] #10 ml Allergies Allergy/AdvReac Type Severity Reaction Status Date / Time cat dander Allergy Dyspnea Verified 01/19/21 02:37 grass pollen Allergy Dyspnea Verified 01/19/21 02:37 Review of Systems ROS Statement: Those systems with pertinent positive or pertinent negative responses have been documented in the HPI. ROS Other: All systems not noted in ROS Statement are negative. Past Medical History Past Medical History: Asthma Additional Past Medical History / Comment(s): "difficulty sleeping" History of Any Multi-Drug Resistant Organisms: None Reported Past Surgical History: Tonsillectomy Additional Past Surgical History / Comment(s): lt hand sx d/t laceration Past Anesthesia/Blood Transfusion Reactions: No Reported Reaction Additional Past Anesthesia/Blood Transfusion Reaction / Comment(s): clausterphobia Past Psychological History: ADD/ADHD, Bipolar Smoking Status: Current every day smoker Past Alcohol Use History: Rare Past Drug Use History: Cocaine, Marijuana, Methamphetamine - Past Family History Mother History Unknown: Yes Father History Unknown: Yes General Exam Limitations: no limitations General appearance: alert, in no apparent distress Head exam: Present: atraumatic Eye exam: Present: normal appearance, PERRL, EOMI. Absent: scleral icterus ENT exam: Absent: TM's normal bilaterally (Patient does have a erythematous left tympanic membrane), normal external ear exam (Patient has minimal edema of the external auditory canal with mild free noted within the external auditory canal. Pain with palpation of the tragus and traction of the pinna) Neck exam: Present: normal inspection, full ROM. Absent: tenderness Respiratory exam: Present: normal lung sounds bilaterally. Absent: respiratory distress, wheezes Cardiovascular Exam: Present: regular rate, normal rhythm, normal heart sounds Course Vital Signs 01/19/21 02:33 Temperature 97.8 F Pulse Rate 75 Respiratory 16 Rate Blood Pressure 147/98 O2 Sat by Pulse 96 Oximetry Medical Decision Making - Medical Decision Making The patient as directed. Follow-up with your doctor or ENT in one to 2 days. Return to the emergency room for any worsening symptoms. Disposition Clinical Impression: Otitis externa Disposition: HOME SELF-CARE Condition: Good Instructions (If sedation given, give patient instructions): Otitis Externa (ED) Additional Instructions: Please take medications as directed. Take Motrin and Tylenol for pain. Follow- up with your doctor or ENT in one to 2 days. Return to the emergency room for any worsening symptoms. Prescriptions: Amoxicillin 875 mg PO Q12HR #20 tablet Ofloxacin 0.3% Ophth Soln [Ocuflox Ophth Soln] 10 drops LEFT EAR DAILY 10 Days #10 ml Is patient prescribed a controlled substance at d/c from ED?: No Referrals: Katelynn Soto MD [Primary Care Provider] - 1-2 days Magan Fink MD [STAFF PHYSICIAN] - 1-2 days Time of Disposition: 03:06
== END 2021-01-19 03:09 | disposition home or self-care (01) ==
LOC: EC 02:23
DX: H60.92 Unspecified otitis externa, left ear (principal); F17.200 Nicotine dependence, unspecified, uncomplicated; J45.909 Unspecified asthma, uncomplicated; Z91.048 Other nonmedicinal substance allergy status
CPT/HCPCS: 99282

== ENCOUNTER 2021-05-02 18:48 | Emergency (ER) | payer OTHER ==
[2021-05-02 19:06] VITALS: BP 123/84; PULSE 89; RESP 16; TEMP 97.9
[2021-05-02] MEDS ORDERED: IBUPROFEN 800 MG TAB PO STA (19:25)
--- NOTE | 2021-05-02 19:49 | XR ---
EXAMINATION TYPE: XR wrist complete RT DATE OF EXAM: 05/02/2021 COMPARISON: NONE HISTORY: Pain TECHNIQUE: 4 views FINDINGS: I see no fracture nor dislocation. There is some deformity of the distal scaphoid bone with some cystic changes are probably relates to old trauma. IMPRESSION: Scaphoid mild deformity probably related to old injury. No acute bony abnormality.
--- NOTE | 2021-05-02 19:51 | XR ---
EXAMINATION TYPE: XR hand complete RT DATE OF EXAM: 05/02/2021 COMPARISON: NONE HISTORY: Pain TECHNIQUE: 3 views FINDINGS: Metacarpals are intact. There is some cortical thickening on the lateral aspect of the base of the middle phalanx of the index finger that measures 5 mm and probably related to an osteoma. The re are no erosions. There is no fracture. There is some thickening and cystic change in the lateral d istal scaphoid probably from an old injury or osteoma. IMPRESSION: No acute abnormality of the right hand. No evidence of inflammatory arthritis. 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
--- NOTE | 2021-05-02 19:52 | ED ---
General Adult HPI - General Chief complaint: Extremity Injury, Upper Stated complaint: finger pain Time Seen by Provider: 05/02/21 19:09 Source: patient, RN notes reviewed, old records reviewed Mode of arrival: ambulatory Limitations: no limitations - History of Present Illness Initial comments: Patient is a 35-year-old male with no significant past medical history who presents emergency Department complaining of acute onset of right second finger pain in right wrist pain. Patient was at work today, and when he got home he started noticing a swelling over the knuckle of his right second finger. Is normal range of motion but it is tender to palpation over the swelling. Has been complaining of some pain of the right wrist with extension. Denies any fevers, chills. Denies any known injuries. Denies any IV drug use. Denies any fevers. Has no other acute complaints at this time. His concern for possible injury, however does not recall injuring it at work. He has no other acute complaints at this time. Denies any fevers, chills, sick contacts. Presents for medical evaluation. Uncertain when his last tetanus shot was. - Related Data Previous Rx's Medication Instructions Recorded HYDROcodone/APAP 7.5-325MG [[place] 1 tab PO Q6HR PRN 3 Days #12 tab 07/31/20 7.5-325] predniSONE [Deltasone] 20 mg PO BID #10 tab 07/31/20 Amoxicillin 875 mg PO Q12HR #20 tablet 01/19/21 Ofloxacin 0.3% Ophth Soln [Ocuflox 10 drops LEFT EAR DAILY 10 Days 01/19/21 Ophth Soln] #10 ml Allergies Allergy/AdvReac Type Severity Reaction Status Date / Time cat dander Allergy Dyspnea Verified 05/02/21 19:06 grass pollen Allergy Dyspnea Verified 05/02/21 19:06 Review of Systems ROS Statement: Those systems with pertinent positive or pertinent negative responses have been documented in the HPI. Review of Systems: CONST: Denies fever EYES: Denies blurry vision ENT: Denies nasal congestion C/V: Denies Chest pain RESP: Denies shortness of breath GI: Denies abdominal pain : Denies dysuria SKIN: Denies rash. MSK: Endorses right finger pain, right wrist pain. NEURO: Denies headache ROS Other: All systems not noted in ROS Statement are negative. Past Medical History Past Medical History: Asthma Additional Past Medical History / Comment(s): "difficulty sleeping" History of Any Multi-Drug Resistant Organisms: None Reported Past Surgical History: Tonsillectomy Additional Past Surgical History / Comment(s): lt hand sx d/t laceration Past Anesthesia/Blood Transfusion Reactions: No Reported Reaction Additional Past Anesthesia/Blood Transfusion Reaction / Comment(s): clauster phobia Past Psychological History: ADD/ADHD, Bipolar Smoking Status: Former smoker Past Alcohol Use History: Rare Past Drug Use History: Cocaine, Marijuana, Methamphetamine - Past Family History Mother History Unknown: Yes Father History Unknown: Yes General Exam - General Exam Comments Initial Comments: General: Appears in no acute distress. HEAD: Normal with no signs of head trauma. EYES: Pupils are 3 mm and equal bilaterally. ENT: Hearing grossly intact, normal oropharynx. RESPIRATORY: No increased work of breathing. C/V: Regular rate and rhythm. S1 and S2 auscultated, no edema, peripheral pulses 2+ and intact throughout ABD: Abdomen is nondistended. EXT: Full range of motion of the right finger and right wrist with some mild pain on range of motion. Finger is held in extension. No pain with passive flexion or extension. Focal tenderness over the site of a medial swelling or bump at the PIP joint, second finger. No percussion tenderness. No uniform swelling. No flexion posture. No focal tenderness to palpation of the right wrist.No snuffbox tenderness. SKIN: No rashes or lesions observed on exposed skin. NEURO: Alert and oriented 4. No focal sensory strength deficits. Limitations: no limitations Course Vital Signs 05/02/21 19:03 Temperature 97.9 F Pulse Rate 89 Respiratory 16 Rate Blood Pressure 123/84 O2 Sat by Pulse 96 Oximetry Medical Decision Making - Medical Decision Making Based on patient's presentation and physical exam, I'm concerned for possible bony tabetic injury the patient's wrist or finger. It could be a possible infection, however this is unlikely considering acute in onset. It almost appears as if the finger is dislocated, however we will obtain a x-ray to evaluate. There is no open wounds. Does not require tetanus prophylaxis at this time. I have no concern for flexor tenosynovitis at this time. Patient will be given ibuprofen for pain management and we'll obtain x-rays. He was in agreement with this plan. Patient's x-rays revealed an old injury to the scaphoid but otherwise no acute bony abnormality for the wrist. Hand x-ray revealed no acute abnormality of the hand. There is an osteoma of the middle phalanx of the index finger. This is at the site of the mass on his finger. No other acute abnormalities. On reevaluation, I spoke with the patient. I updated him on the imaging findings. Osteoma is likely benign, however can follow-up with orthopedic surgeon on an outpatient basis. There is no other acute injuries seen at this time. Patient will be given a splint for his finger as well as contact information for orthopedic hand surgery. He was in agreement with this plan. He can use [id number] analgesic medications for his pain. Patient was in agreement this plan. I instructed the patient to follow up with their PCP in the next 3 days. I provided contact information for follow up with Dr. Smith. I explained that the patient should return to the emergency department if they experience any worsening symptoms. Strict return precautions were discussed with the patient. The patient expressed understanding of these instructions. I answered all questions that the patient had. The patient was discharged home in good condition with their prescriptions and follow up information. Disposition Clinical Impression: Osteoma, Finger pain Disposition: HOME SELF-CARE Condition: Good Instructions (If sedation given, give patient instructions): Benign Bone Tumor (DC) Is patient prescribed a controlled substance at d/c from ED?: No Referrals: Katelynn Soto MD [Primary Care Provider] - 1-2 days Anthony Smith DO [Doctor of Osteopathic Medicine] - 1-2 days
== END 2021-05-02 20:58 | disposition home or self-care (01) ==
LOC: EC 18:48
DX: M79.644 Pain in right finger(s) (principal); J45.909 Unspecified asthma, uncomplicated; Z87.891 Personal history of nicotine dependence; Z91.09 Other allergy status, other than to drugs and biological substances; X58.XXXA Exposure to other specified factors, initial encounter; Y92.69 Other specified industrial and construction area as the place of occurrence of the external cause

== ENCOUNTER → 2021-05-19 | Outpatient (CLI) | payer OTHER ==
--- NOTE | 2021-05-19 09:14 | CT ---
EXAMINATION TYPE: CT hand RT wo con DATE OF EXAM: 05/19/2021 COMPARISON: X-ray 05/02/2021 HISTORY: Benign neoplasm of short bones of upper limb, lump right index finger and base of thumb CT DLP: 185.1 mGycm Automated exposure control for dose reduction was used. FINDINGS: Osseous structures intact. Joint spaces preserved. Cystic change involving the scaphoid. No contrast was administered limiting assessment for mass. There is a marker over the area of palpable abnormalit y and no definite nodule seen. Given the limitation exam recommend follow-up MRI. IMPRESSION: 1. NO OSSEOUS LESION. 2. NO DEFINITE SOFT TISSUE NODULE SEEN. GIVEN THE LIMITATION OF NONCONTRAST CT, MRI RECOMMENDED FOR S OFT TISSUE NODULE IF THERE IS A PALPABLE ABNORMALITY WHICH WOULD BE THE STUDY OF CHOICE.
== END | disposition home or self-care (01) ==
LOC: RADCTMAIN 08:30
PROVIDERS: ATTEND Orthopaedic Surgery Hand Surgery
DX: D16.11 Benign neoplasm of short bones of right upper limb (principal)

== ENCOUNTER 2021-05-24 21:23 | Emergency (ER) | payer OTHER ==
[2021-05-24 22:18] VITALS: BP 147/104; PULSE 91; RESP 18; TEMP 98.3
== END 2021-05-24 22:56 | disposition left against medical advice (07) ==
LOC: EC 21:23
DX: M25.531 Pain in right wrist (principal); Z20.822 Contact with and (suspected) exposure to COVID-19
CPT/HCPCS: 87635; 99499

== ENCOUNTER 2021-07-21 13:55 | Day surgery (SDC) | payer OTHER ==
[2021-07-20 11:27] VITALS: BMI 20.7
--- NOTE | 2021-07-20 13:36 | P.HPOR ---
History of Present Illness H&P Date: 07/20/21 Chief Complaint: Right index finger bone tumor Subjective: This is a 35 year old male that presents today for follow up evaluation regarding a right index finger mass that he has noticed for the last 2 years. He states the mass is still painful and more prominent. It is painful when he pinches or flexes the finger. He denies any prior injury to the finger and denies any paresthesias. He recently obtained a CT of the hand for pre-op planning. Physical Examination: RUE: AIN/PIN/Radial/Ulnar/Median motor intact. Radial/Ulnar/Median SILT. 2+/4 Radial/Ulnar pulses palpated. TTP over fullness located at radial aspect of the middle phalanx of the right index finger. Mass is fixed and immobile. Able to make a full fist. Collateral ligaments stable. Imaging: X-Rays of the right index finger demonstrate a osseus prominence protruding from the radial aspect of the middle phalanx. No surrounding soft tissue calcifications or reaction appreciated. CT of right index finger demonstrates bony protuberance extending off of the dorsal/volar and radial boarder of the right index finger middle phalanx. Impression: 1.) Right index finger middle phalanx grisel mass, possible osteoma. Plan: Diagnosis and treatment options were discussed with the patient. Due to the mast interfering with his activities and function he would like to eventually have the mass removed. Risks and benefits of surgery including bleeding, infection, damage to surrounding tissue, need for further surgery, recurrence, residual numbness were discussed and the patient wished to go forward with surgery. He will obtain pre-op labs and will be scheduled for right index finger bone tumor excision. -Anthony Smith DO Orthopedic Hand/Upper Extremity Surgeon Past Medical History Past Medical History: Asthma Additional Past Medical History / Comment(s): bone tumor rt index finger,hx "difficulty sleeping" History of Any Multi-Drug Resistant Organisms: None Reported Past Surgical History: Tonsillectomy Additional Past Surgical History / Comment(s): lt hand sx d/t laceration Past Anesthesia/Blood Transfusion Reactions: No Reported Reaction Additional Past Anesthesia/Blood Transfusion Reaction / Comment(s): claustrophobia Smoking Status: Current every day smoker, Vaper - Past Family History Mother History Unknown: Yes Family Medical History: No Reported History Father History Unknown: Yes Family Medical History: No Reported History Medications and Allergies Home Medications Medication Instructions Recorded Confirmed Type Acetaminophen Tab [Tylenol Tab] 1,000 mg PO DIRECTED PRN 07/20/21 07/20/21 History Allergies Allergy/AdvReac Type Severity Reaction Status Date / Time cat dander Allergy Dyspnea Verified 07/20/21 11:15 grass pollen Allergy Dyspnea Verified 07/20/21 11:15 Physical Examination Osteopathic Statement: *. No significant issues noted on an osteopathic structural exam other than those noted in the History and Physical/Consult.
[2021-07-21] MEDS ORDERED: SCOPOLAMINE 1.5MG/72HR PATCH TRANSDERM ONE (14:06)
[2021-07-21] MEDS ORDERED: DEXAMETHASONE SOD PHOSPHATE 4 MG/ML 1 ML VIAL IV ONE (14:06)
[2021-07-21] MEDS ORDERED: LACTATED RINGERS 1,000 ML IV SCH (14:06)
[2021-07-21] MEDS ORDERED: LIDOCAINE 1% (10MG/ML) FOR IV START INTRADERMA PRN (14:06)
[2021-07-21] MEDS ORDERED: ONDANSETRON 4 MG/2 ML VIAL IVP ONE (14:06)
[2021-07-21] MEDS ORDERED: PROPOFOL 10 MG/ML 20 ML VIAL IV ONE (14:46)
[2021-07-21] MEDS ORDERED: MIDAZOLAM 2 MG/2 ML VIAL ONE (14:46)
[2021-07-21] MEDS ORDERED: fentaNYL (PF) 50 MCG/ML 2 ML AMP ONE (14:46)
[2021-07-21] MEDS ORDERED: BUPIVACAINE (PF) 0.25% 30 ML VIAL SQ ONE (15:23)
[2021-07-21 16:01] VITALS: TEMP 97.2
[2021-07-21] MEDS: HYDROmorphone 0.5 MG/0.5 ML SYRINGE IVP PRN ×2 (16:18→16:30)
[2021-07-21] MEDS ORDERED: KETOROLAC 15 MG/ML 1 ML VIAL IVP ONE (16:35)
[2021-07-21 17:03] VITALS: RESP 18
[2021-07-21 17:31] VITALS: BP 123/80; PULSE 68
--- NOTE | 2021-07-22 07:35 | P.OP ---
Date of Procedure: 07/21/21 Preoperative Diagnosis: Right index finger middle phalanx tumor Postoperative Diagnosis: Right index finger middle phalanx bone tumor Procedure(s) Performed: 1.) Excision of right index finger middle phalanx bone tumor, 1cm. ([id number]) Anesthesia: GETA Surgeon: Anthony Smith Preparole Counseling Aide #1: Marcelo Lucia Estimated Blood Loss (ml): 0 Pathology: other (Right index finger mass x1) Condition: stable Disposition: PACU Description of Procedure: This is a 35 year old male who presents today for excision of a right index finger mass that has failed conservative treatment. Risks and benefits of surgery were discussed with the patient including bleeding, damage to surrounding tissue, infection, need for further surgery as well as risks of anesthesia including pulmonary embolism and even and the patient wished to proceed with surgical intervention. The patient was seen in the pre-operative area by myself. Consent and H&P were completed and updated. The correct extremity was marked in the pre-operative area by myself and all other questions were answered. Operative Narrative: The patient was brought to the operating room by the department of anesthesia. They remained on the portable stretcher and a rolling hand table was brought to the side of the operative extremity. Pre-operative time out was performed indicating the correct patient, procedure and laterality. All in the room agreed. Pre-operative antibiotics were given prior to skin incision. The patient was then drifted off to sleep by the department of anesthesia. A nonsterile tourniquet was then applied to the operative extremity and the right upper extremity was then prepped and draped in normal sterile fashion. The operative extremity was the exsanguinated with an esmarch bandage and the tourniquet was inflated to 250mmHg. A mid axial incision was made along the middle phalanx of the right index finger over the area of the mass with 15 blade scalpel. Blunt dissection was taken down through subcutaneous tissues. Neurovascular bundle and flexor tendon was identified and protected. 15 blade scalpel and tenotomy scissors were then used to carefully dissect down to the round mass which appeared to have a cartilagenous appearing cap with a osseous base. Rongeur was used to excise the radial and dorsal portions of the mass and it was sent off as specimen the dorsal and radial cortex was now smooth. The volar radial portion of the mass was then dissected out and care was taken to preserve the FDP tendon which was translated ulnarly due to the mass. The remainder of the volar mass was then excised with rongeur. There was no longer any palpable mass present. The wound was then irrigated with sterile saline and skin closure was performed with 4-0 nylon suture. Soft dressing was applied and tourniquet was let down and all digits had immediate perfusion. The patient was then woken by the department of anesthesia and transferred to PACU in stable condition. Marcelo CONKLIN was present and assisted in retraction and protection of important neurovascular structures throughout the entire procedure. Anthony Smith D.O. Orthopedic Hand/Upper Extremity Surgeon
== END 2021-07-21 18:02 | disposition home or self-care (01) ==
LOC: OR 13:55
PROVIDERS: ATTEND Orthopaedic Surgery Hand Surgery
DX: D16.11 Benign neoplasm of short bones of right upper limb (principal); J45.909 Unspecified asthma, uncomplicated; Z98.890 Other specified postprocedural states; F40.240 Claustrophobia; F17.290 Nicotine dependence, other tobacco product, uncomplicated; Z91.09 Other allergy status, other than to drugs and biological substances
CPT/HCPCS: 88305; 88311; 26210; J2250; J1100; J0690; J2405; J3010; J1885; J2704; J1170

== ENCOUNTER 2023-07-05 22:16 | Emergency (ER) | payer OTHER ==
[2023-07-05 22:27] VITALS: TEMP 98.1
--- NOTE | 2023-07-05 22:59 | ED ---
General Adult HPI - General Chief complaint: Allergic Reaction Stated complaint: Allergic Reaction Time Seen by Provider: 07/05/23 22:28 Source: patient, RN notes reviewed Mode of arrival: ambulatory Limitations: no limitations - History of Present Illness Initial comments: 37-year-old male presents to the emergency department for evaluation of allergic reaction. Patient states that around 30 minutes ago he developed eye irritation and an itchy rash to his cheeks, neck, trunk. Patient states that he was exposed to his father's cat and the cat typically makes his eyes itchy but he has not had a reaction like this in the past. He does state that he was closer to the cat today than he typically is. He denies any throat irritation, difficulty breathing. Denies prior anaphylaxis. He denies any other new exposures. Denies significant past medical history. - Related Data Home Medications Medication Instructions Recorded Confirmed Acetaminophen Tab [Tylenol Tab] 1,000 mg PO DIRECTED PRN 07/20/21 07/21/21 Previous Rx's Medication Instructions Recorded HYDROcodone/APAP 5-325MG [[place] 1 tab PO Q6HR PRN 3 Days #24 tab 07/21/21 5-325] predniSONE [Deltasone] 40 mg PO DAILY #10 tab 07/05/23 Allergies Allergy/AdvReac Type Severity Reaction Status Date / Time cat dander Allergy Dyspnea Verified 07/05/23 22:20 grass pollen Allergy Dyspnea Verified 07/05/23 22:20 Review of Systems ROS Statement: Those systems with pertinent positive or pertinent negative responses have been documented in the HPI. ROS Other: All systems not noted in ROS Statement are negative. Past Medical History Past Medical History: Asthma Additional Past Medical History / Comment(s): bone tumor rt index finger,hx "d ifficulty sleeping" History of Any Multi-Drug Resistant Organisms: None Reported Past Surgical History: Tonsillectomy Additional Past Surgical History / Comment(s): lt hand sx d/t laceration Past Anesthesia/Blood Transfusion Reactions: No Reported Reaction Additional Past Anesthesia/Blood Transfusion Reaction / Comment(s): claustrophobia Past Psychological History: ADD/ADHD, Bipolar Smoking Status: Current every day smoker, Vaper Past Alcohol Use History: Rare Past Drug Use History: Cocaine, Marijuana, Methamphetamine - Past Family History Mother History Unknown: Yes Family Medical History: No Reported History Father History Unknown: Yes Family Medical History: No Reported History General Exam Limitations: no limitations General appearance: alert, in no apparent distress Head exam: Present: atraumatic, normocephalic, normal inspection Eye exam: Present: normal appearance, PERRL, EOMI. Absent: scleral icterus, conjunctival injection, periorbital swelling ENT exam: Present: normal exam, normal oropharynx, mucous membranes moist Neck exam: Present: normal inspection. Absent: tenderness, meningismus, lymphadenopathy Respiratory exam: Present: normal lung sounds bilaterally. Absent: respiratory distress, wheezes, rales, rhonchi, stridor Cardiovascular Exam: Present: regular rate, normal rhythm, normal heart sounds. Absent: systolic murmur, diastolic murmur, rubs, gallop, clicks Extremities exam: Present: normal inspection, full ROM, normal capillary refill. Absent: tenderness, pedal edema, joint swelling, calf tenderness Back exam: Present: normal inspection Neurological exam: Present: alert, oriented X3 Psychiatric exam: Present: normal affect, normal mood Skin exam: Present: warm, dry, intact, rash (Urticaria to posterior neck, papular rash trunk) Course Vital Signs 07/05/23 07/05/23 07/06/23 22:17 22:50 00:00 Temperature 98.1 F 98.1 F Pulse Rate 84 61 Respiratory 16 20 18 Rate Blood Pressure 121/85 116/79 O2 Sat by Pulse 96 98 Oximetry Medical Decision Making - Medical Decision Making Was pt. sent in by a medical professional or institution ([facility], [facility], urgent care, hospital, or [facility]...) When possible be specific @ -No Did you speak to anyone other than the patient for history (EMS, parent, family, police, friend...)? What history was obtained from this source @ -No Did you review nursing and triage notes (agree or disagree)? Why? @ -I reviewed and agree with nursing and triage notes Were old charts reviewed (outside hosp., previous admission, EMS record, old EKG, old radiological studies, urgent care reports/EKG's, [facility] records)? Report findings @ -No old charts were reviewed Differential Diagnosis (chest pain, altered mental status, abdominal pain women, abdominal pain men, vaginal bleeding, weakness, fever, dyspnea, syncope, headache, dizziness, GI bleed, back pain, seizure, CVA, palpatations, mental health, musculoskeletal)? @ -Allergic urticaria, atopic dermatitis, contact dermatitis, this is not all inclusive EKG interpreted by me (3pts min.). @ -None X-rays interpreted by me (1pt min.). @ -Chest x-ray shows no acute process CT interpreted by me (1pt min.). @ -None done U/S interpreted by me (1pt. min.). @ -None done What testing was considered but not performed or refused? (CT, X-rays, U/S, labs)? Why? @ -None What meds were considered but not given or refused? Why? @ -None Did you discuss the management of the patient with other professionals (professionals i.e. , PA, [facility], lab, RT, psych nurse, social science research assistant, demonstrator sales, teacher, parole hearing officer, case checker)? Give summary @ -No Was smoking cessation discussed for >3mins.? @ -No Was critical care preformed (if so, how long)? @ -No Were there social determinants of health that impacted care today? How? (Home lessness, low income, unemployed, alcoholism, drug addiction, transportation, low edu. Level, literacy, decrease access to med. care, snf, rehab)? @ -No Was there de-escalation of care discussed even if they declined (Discuss DNR or withdrawal of care, Hospice)? DNR status @ -No What co-morbidities impacted this encounter? (DM, HTN, Smoking, COPD, CAD, Cancer, CVA, ARF, Chemo, Hep., AIDS, mental health diagnosis, sleep apnea, morbid obesity)? @ -None Was patient admitted / discharged? Hospital course, mention meds given and route, prescriptions, significant lab abnormalities, going to OR and other pertinent info. @ -Discharge. Patient presented to the emergency department for evaluation of allergic reaction. Patient reports that he has an pruritic rash to his face, neck, trunk that started just prior to arrival. He denies any throat irritation or difficulty breathing. Patient provided 1 L normal saline, IV Solu-Medrol, Benadryl, Pepcid. Patient's symptoms improved with this regimen. Laboratory studies obtained which are essentially unremarkable. Chest x-ray shows no acute process. Patient will be discharged home and advised to continue with Benadryl and Pepcid. Prescription sent to patient's pharmacy for prednisone x 5 days. Patient understanding agreeable plan. Patient stable at time of discharge. Case discussed with Dr. Funes. Undiagnosed new problem with uncertain prognosis? @ -No Drug Therapy requiring intensive monitoring for toxicity (Heparin, Nitro, I nsulin, Cardizem)? @ -No Were any procedures done? @ -No Diagnosis/symptom? @ -Generalized allergic reaction Acute, or Chronic, or Acute on Chronic? @ -Acute Uncomplicated (without systemic symptoms) or Complicated (systemic symptoms)? @ -Uncomplicated Side effects of treatment? @ -No Exacerbation, Progression, or Severe Exacerbation? @ -No Poses a threat to life or bodily function? How? (Chest pain, [place], OR, pneumonia, PE, COPD, DKA, ARF, appy, cholecystitis, CVA, Diverticulitis, Homicidal, Suicidal, threat to staff... and all critical care pts) @ -No - Lab Data Result diagrams: 07/05/23 23:01 07/05/23 23:01 Lab Results 07/05/23 07/05/23 Range/Units 23:01 23:01 WBC 8.1 (3.8-10.6) k/uL RBC 4.78 (4.30-5.90) m/uL Hgb 15.2 (13.0-17.5) gm/dL Hct 43.9 (39.0-53.0) % MCV 91.7 (80.0-100.0) fL MCH 31.7 (25.0-35.0) pg MCHC 34.5 (31.0-37.0) g/dL RDW 12.6 (11.5-15.5) % Plt Count 157 (150-450) k/uL MPV 8.0 Neutrophils % 60 % Lymphocytes % 33 % Monocytes % 5 % Eosinophils % 1 % Basophils % 1 % Neutrophils # 4.9 (1.3-7.7) k/uL Lymphocytes # 2.7 (1.0-4.8) k/uL Monocytes # 0.4 (0-1.0) k/uL Eosinophils # 0.1 (0-0.7) k/uL Basophils # 0.0 (0-0.2) k/uL Sodium 138 (137-145) mmol/L Potassium 3.8 (3.5-5.1) mmol/L Chloride 109 H (98-107) mmol/L Carbon Dioxide 27 (22-30) mmol/L Anion Gap 2 mmol/L BUN 13 (9-20) mg/dL Creatinine 1.16 (0.66-1.25) mg/dL Est GFR (CKD-EPI)AfAm >90 (>60 ml/min/1.73 sqM) Est GFR (CKD-EPI)NonAf 81 (>60 ml/min/1.73 sqM) Glucose 106 H (74-99) mg/dL Calcium 8.5 (8.4-10.2) mg/dL Total Bilirubin 0.6 (0.2-1.3) mg/dL AST 19 (17-59) U/L ALT 10 (4-49) U/L Alkaline Phosphatase 44 (38-126) U/L Total Protein 5.2 L (6.3-8.2) g/dL Albumin 3.2 L (3.5-5.0) g/dL Disposition Clinical Impression: Allergic reaction Disposition: HOME SELF-CARE Condition: Stable Instructions (If sedation given, give patient instructions): Urticaria (ED) Additional Instructions: Please continue with Benadryl every 6 hours along with Pepcid. Follow up with your primary care provider. Return to the emergency department for new or worsening symptoms. Prescriptions: predniSONE [Deltasone] 40 mg PO DAILY #10 tab Is patient prescribed a controlled substance at d/c from ED?: No Referrals: Katelynn Soto MD [Primary Care Provider] - 1-2 days
[2023-07-05] MEDS: SODIUM CHLORIDE 0.9% 1,000 ML IV STA (23:05)
[2023-07-05] MEDS: methylPREDNISolone SOD SUCCI 125 MG/2 ML VIAL IV STA (23:05)
[2023-07-05] MEDS: diphenhydrAMINE 50 MG CAP PO STA (23:05)
[2023-07-05] MEDS: FAMOTIDINE 20 MG/2 ML VIAL IV STA (23:05)
[2023-07-05 23:18] LABS: Basophils % (A) 1 %; Eosinophils # (A) 0.1 k/uL (0-0.7); Eosinophils % (A) 1 %; HCT 43.9 % (39.0-53.0); HGB 15.2 gm/dL (13.0-17.5); Lymphocytes # (A) 2.7 k/uL (1.0-4.8); Lymphocytes % (A) 33 %; MCH 31.7 pg (25.0-35.0); MCHC 34.5 g/dL (31.0-37.0); MCV 91.7 fL (80.0-100.0); Monocytes # (A) 0.4 k/uL (0-1.0); Monocytes % (A) 5 %; Neutrophils # (A) 4.9 k/uL (1.3-7.7); Neutrophils % (A) 60 %; Platelet Count 157 k/uL (150-450); RBC 4.78 m/uL (4.30-5.90); RDW 12.6 % (11.5-15.5); WBC 8.1 k/uL (3.8-10.6)
[2023-07-05 23:30] LABS: ALT 10 U/L (4-49); AST 19 U/L (17-59); African American GFR (CKD) >90 (>60 ml/min/1.73 sqM); Albumin 3.2 g/dL (3.5-5.0); Alkaline Phosphatase 44 U/L (38-126); Anion Gap 2 mmol/L; Blood Urea Nitrogen 13 mg/dL (9-20); Calcium 8.5 mg/dL (8.4-10.2); Carbon Dioxide 27 mmol/L (22-30); Chloride 109 mmol/L (98-107); Glucose 106 mg/dL (74-99); Non-African American GFR(CKD) 81 (>60 ml/min/1.73 sqM); Potassium 3.8 mmol/L (3.5-5.1); Sodium 138 mmol/L (137-145); Total Bilirubin 0.6 mg/dL (0.2-1.3); Total Protein 5.2 g/dL (6.3-8.2)
--- NOTE | 2023-07-05 23:35 | XR ---
EXAM: XR Chest, 2 Views CLINICAL HISTORY: ITS.REASON XR Reason: allergic reaction TECHNIQUE: Frontal and lateral views of the chest. COMPARISON: 08/29/2018 FINDINGS: Lungs: Unremarkable. No consolidation. Pleural space: Unremarkable. No pneumothorax. Heart: Unremarkable. No cardiomegaly. Mediastinum: Unremarkable. Normal mediastinal contour. Bones/joints: Unremarkable. No acute fracture. IMPRESSION: Normal chest x-rays.
[2023-07-06 00:23] VITALS: BP 116/79; PULSE 61; RESP 18
== END 2023-07-06 00:02 | disposition home or self-care (01) ==
LOC: EC 22:16
DX: T78.40XA Allergy, unspecified, initial encounter (principal); J45.909 Unspecified asthma, uncomplicated; F17.290 Nicotine dependence, other tobacco product, uncomplicated; F12.90 Cannabis use, unspecified, uncomplicated; F14.90 Cocaine use, unspecified, uncomplicated; F15.90 Other stimulant use, unspecified, uncomplicated; Z86.59 Personal history of other mental and behavioral disorders; Z88.8 Allergy status to other drugs, medicaments and biological substances
CPT/HCPCS: 36415; 80053; 85025; 71046; 99283; 96374; 96375; 96361; J2930; J3490

== ENCOUNTER 2024-12-22 14:36 | Emergency (ER) | payer OTHER ==
--- NOTE | 2024-12-22 15:08 | ED ---
Abdominal Pain HPI - General Source: patient, RN notes reviewed Mode of arrival: ambulatory Limitations: no limitations <Claire Diaz - Last Filed: 12/22/24 17:19> <Danette Pierre - Last Filed: 12/22/24 18:27> - General Chief Complaint: Abdominal Pain Stated Complaint: Abd pain Time Seen by Provider: 12/22/24 15:08 - History of Present Illness Initial Comments: 39-year-old male presented the ER for evaluation abdominal pain. Significant other, bedside, aiding in HPI given patient's pain. She reports since this morning patient has been having severe left-sided abdominal discomfort along with persistent nausea and vomiting. He states pain is achy in nature and worse with movement and laying flat. He denies any diarrhea and states his last bowel movement was this morning. He denies any hematochezia, melena, hematemesis or coffee-ground emesis. He has not taken anything for his current symptoms. No prior abdominal surgeries. No significant past medical history. No history of kidney stones. Denies any dizziness, lightheadedness, chest pain, shortness of breath, abnormal penile discharge or scrotal pain and swelling. (Claire Diaz) - Related Data Home Medications Medication Instructions Recorded Confirmed Acetaminophen Tab [Tylenol Tab] 1,000 mg PO DIRECTED PRN 07/20/21 07/21/21 Previous Rx's Medication Instructions Recorded HYDROcodone/APAP 5-325MG [[place] 1 tab PO Q6HR PRN 3 Days #24 tab 07/21/21 5-325] predniSONE [Deltasone] 40 mg PO DAILY #10 tab 07/05/23 Ketorolac [Toradol] 10 mg PO Q8HR #15 tab 12/22/24 Allergies Allergy/AdvReac Type Severity Reaction Status Date / Time cat dander Allergy Dyspnea Verified 07/05/23 22:20 grass pollen Allergy Dyspnea Verified 07/05/23 22:20 latex Allergy Rash/Hives Verified 12/22/24 14:45 Review of Systems ROS Other: All systems not noted in ROS Statement are negative. <Claire Diaz - Last Filed: 12/22/24 17:19> ROS Other: All systems not noted in ROS Statement are negative. <Danette Pierre - Last Filed: 12/22/24 18:27> ROS Statement: Those systems with pertinent positive or pertinent negative responses have been documented in the HPI. Past Medical History Past Medical History: Asthma Additional Past Medical History / Comment(s): bone tumor rt index finger,hx "difficulty sleeping" History of Any Multi-Drug Resistant Organisms: None Reported Past Surgical History: Tonsillectomy Additional Past Surgical History / Comment(s): lt hand sx d/t laceration Past Anesthesia/Blood Transfusion Reactions: No Reported Reaction Additional Past Anesthesia/Blood Transfusion Reaction / Comment(s): claustrophobia Past Psychological History: ADD/ADHD, Bipolar Smoking Status: Current every day smoker, Vaper Past Alcohol Use History: Rare Past Drug Use History: Cocaine, Marijuana, Methamphetamine - Past Family History Mother History Unknown: Yes Family Medical History: No Reported History Father History Unknown: Yes Family Medical History: No Reported History <Claire Diaz - Last Filed: 12/22/24 17:19> General Exam Limitations: no limitations General appearance: alert, anxious (Patient appears in pain and uncomfortable) Respiratory exam: Present: normal lung sounds bilaterally. Absent: respiratory distress, wheezes, rales, rhonchi, stridor Cardiovascular Exam: Present: regular rate, normal rhythm, normal heart sounds. Absent: systolic murmur, diastolic murmur, rubs, gallop, clicks GI/Abdominal exam: Present: soft, tenderness (Left lower quadrant), guarding (With abdominal muscles), normal bowel sounds Extremities exam: Present: normal inspection, full ROM, normal capillary refill. Absent: tenderness, pedal edema, joint swelling, calf tenderness Back exam: Present: CVA tenderness (L) Neurological exam: Present: alert, oriented X3, CN II-XII intact Skin exam: Present: warm, intact, normal color, diaphoretic <Claire Diaz - Last Filed: 12/22/24 17:19> Course <Claire Diaz - Last Filed: 12/22/24 17:19> Vital Signs 12/22/24 14:42 Temperature 97.4 F L Pulse Rate 53 L Respiratory 22 Rate Blood Pressure 162/76 O2 Sat by Pulse 97 Oximetry - Reevaluation(s) Reevaluation #1: 12/22/24 17:20 Patient signed out to Danette Pierre PA-C. (Claire Diaz) Medical Decision Making - Lab Data Result diagrams: 12/22/24 15:25 12/22/24 15:25 <Claire Diaz - Last Filed: 12/22/24 17:19> - Lab Data Result diagrams: 12/22/24 15:25 12/22/24 15:25 <Danette Pierre - Last Filed: 12/22/24 18:27> - Medical Decision Making Was pt. sent in by a medical professional or institution (, PA, BILINGUAL TEACHER, urgent care, hospital, or fci...) When possible be specific @ -No Did you speak to anyone other than the patient for history (EMS, parent, family, police, friend...)? What history was obtained from this source @ -Significant other, bedside, aiding in HPI past medical history. Did you review nursing and triage notes (agree or disagree)? Why? @ -I reviewed and agree with nursing and triage notes Were old charts reviewed (outside hosp., previous admission, EMS record, old EKG, old radiological studies, urgent care reports/EKG's, fci records)? Report findings @ -No old charts were reviewed Differential Diagnosis (chest pain, altered mental status, abdominal pain women, abdominal pain men, vaginal bleeding, weakness, fever, dyspnea, syncope, headache, dizziness, GI bleed, back pain, seizure, CVA, palpatations, mental health, musculoskeletal)? @ -[Differential Abdominal Pain Men:Appendicitis, cholecystitis, diverticulosis, ischemic bowel, pancreatitis, hepatitis, UTI, gastroenteritis, AAA, incarcerated hernia, bowel obstruction, constipation, inflammatory bowel, hepatitis, peptic ulcer disease, splenic infarction, perforated viscus, testicular torsion, this is not meant to be an all-inclusive list EKG interpreted by me (3pts min.). @ -None done X-rays interpreted by me (1pt min.). @ -[None done CT interpreted by me (1pt min.). @ -CT Abdo pelvis remarkable for a 4 mm calculus in the left posterior bladder lumen adjacent to the left UVJ consistent with a recently passed stone. Minimal residual left-sided hydroureteronephrosis. Additional nonobstructing left logan al calculi. U/S interpreted by me (1pt. min.). @ -None done What testing was considered but not performed or refused? (CT, X-rays, U/S, labs)? Why? @ -None What meds were considered but not given or refused? Why? @ -None Did you discuss the management of the patient with other professionals (prof griggs i.e. , PA, BILINGUAL TEACHER, lab, RT, psych nurse, social media community manager, director of neurology, teacher, money position officer, keycase assembler)? Give summary @ -No Was smoking cessation discussed for >3mins.? @ -No Was critical care preformed (if so, how long)? @ -No Were there social determinants of health that impacted care today? How? (Homelessness, low income, unemployed, alcoholism, drug addiction, transportation, low edu. Level, literacy, decrease access to med. care, half-way, rehab)? @ -No Was there de-escalation of care discussed even if they declined (Discuss DNR or withdrawal of care, Hospice)? DNR status @ -No What co-morbidities impacted this encounter? (DM, HTN, Smoking, COPD, CAD, Cancer, CVA, ARF, Chemo, Hep., AIDS, mental health diagnosis, sleep apnea, morbid obesity)? @ -None Was patient admitted / discharged? Hospital course, mention meds given and route, prescriptions, significant lab abnormalities, going to OR and other pertinent info. @ -39-year-old male presented the ER for evaluation of LLQ abdominal pain. Vital signs stable. Upon examination patient laying in position and diaphoretic. There is focal left lower quadrant abdominal tenderness with left CVA tenderness noted. Laboratory studies obtained unremarkable. WBC 5.6. Lactic 1.5. Urinalysis pending. CT abdomen pelvis remarkable for a 4 mm calculus in the left posterior bladder lumen adjacent to the left UVJ consistent with a recently passed stone. Minimal left-sided hydroureteronephrosis. Additional nonobstructing left renal calculi. Patient provided with symptomatic treatment in the emergency department. Patient signed out to Danette brady UA and disposition. (Claire Diaz) Was patient admitted / discharged? Hospital course, mention meds given and route, prescriptions, significant lab abnormalities, going to OR and other pertinent info. @ -Discharge. 39-year-old male presenting to the ER for evaluation of left lower quadrant abdominal pain. Case signed out to me pending urinalysis and disposition. Patient does have a 4 mm calculus shown on CT scan in the left posterior bladder lumen adjacent to the left UVJ consistent with a recently passed stone. Lab work unremarkable. Urinalysis hemorrhagic no sign of urinary tract infection. Upon reevaluation, patient reports significant improvement of symptoms. Discussed diagnosis of left kidney stone with patient. Advised urology follow-up. Appropriate return precautions and supportive care discussed. Provided with Toradol and Tylenol 3 starter pack to take at home for pain. Case was discussed with my ED attending Dr. Gibbs Undiagnosed new problem with uncertain prognosis? @ -[No] Drug Therapy requiring intensive monitoring for toxicity (Heparin, Nitro, Insulin, Cardizem)? @ -No Were any procedures done? @ -No Diagnosis/symptom? @ -Left nephrolithiasis Acute, or Chronic, or Acute on Chronic? @ -Acute Uncomplicated (without systemic symptoms) or Complicated (systemic symptoms)? @ -Uncomplicated Side effects of treatment? @ -No Exacerbation, Progression, or Severe Exacerbation? @ -No Poses a threat to life or bodily function? How? (Chest pain, [place], MA, pneumonia, PE, COPD, DKA, ARF, appy, cholecystitis, CVA, Diverticulitis, Homicidal, Suicidal, threat to staff... and all critical care pts) @ -No (Danette Pierre) - Lab Data Lab Results 12/22/24 12/22/24 12/22/24 Range/Units 15:25 15:25 15:25 WBC 5.67 (4.50-10.00) 10*3/uL RBC 5.01 (4.40-5.60) 10*6/uL Hgb 15.5 (13.0-17.0) g/dL Hct 45.1 (39.6-50.0) % MCV 90.0 (80.0-97.0) fL MCH 30.9 (27.0-32.0) pg MCHC 34.4 (32.0-37.0) g/dL Plt Count 165 (140-440) 10*3/uL MPV 10.5 (9.5-12.2) fL Immature Gran % (Auto) 0.2 % Neutrophils % 54.2 % Lymphocytes % 37.2 % Monocytes % 6.3 % Eosinophils % 1.4 % Basophils % 0.7 % Immature Gran # 0.01 (0.00-0.04) 10*3/uL Neutrophils # 3.07 (1.80-7.70) 10*3/uL Lymphocytes # 2.11 (0.90-5.00) 10*3/uL Monocytes # 0.36 (0.20-1.00) 10*3/uL Eosinophils # 0.08 (0.04-0.35) 10*3/uL Basophils # 0.04 (0.00-0.10) 10*3/uL Sodium 142 (137-145) mmol/L Potassium 5.0 (3.5-5.1) mmol/L Chloride 105 (98-107) mmol/L Carbon Dioxide 29 (22-30) mmol/L Anion Gap 8 mmol/L BUN 15 (9-20) mg/dL Creatinine 1.17 (0.66-1.25) mg/dL Est GFR (CKD-EPI)AfAm >90 (>60 ml/min/1.73 sqM) Est GFR (CKD-EPI)NonAf 79 (>60 ml/min/1.73 sqM) Glucose 120 H (74-99) mg/dL Plasma Lactic Acid Abelardo 1.5 (0.7-2.0) mmol/L Calcium 9.9 (8.4-10.2) mg/dL Total Bilirubin 0.8 (0.2-1.3) mg/dL AST 22 (17-59) U/L ALT 17 (4-49) U/L Alkaline Phosphatase 61 (38-126) U/L Total Protein 7.8 (6.3-8.2) g/dL Albumin 5.0 (3.5-5.0) g/dL Amylase 59 (30-110) U/L Lipase 97 (23-300) U/L Urine Color Urine Appearance (Clear) Urine pH (5.0-8.0) Ur Specific [place] (1.001-1.035) Urine Protein (Negative) Urine Glucose (UA) (Negative) Urine Ketones (Negative) Urine Blood (Negative) Urine Nitrite (Negative) Urine Bilirubin (Negative) Urine Urobilinogen (<2.0) mg/dL Ur Leukocyte Esterase (Negative) Urine RBC (0-5) /hpf Urine WBC (0-5) /hpf Urine Mucus (None) /hpf 12/22/24 Range/Units 17:17 WBC (4.50-10.00) 10*3/uL RBC (4.40-5.60) 10*6/uL Hgb (13.0-17.0) g/dL Hct (39.6-50.0) % MCV (80.0-97.0) fL MCH (27.0-32.0) pg MCHC (32.0-37.0) g/dL Plt Count (140-440) 10*3/uL MPV (9.5-12.2) fL Immature Gran % (Auto) % Neutrophils % % Lymphocytes % % Monocytes % % Eosinophils % % Basophils % % Immature Gran # (0.00-0.04) 10*3/uL Neutrophils # (1.80-7.70) 10*3/uL Lymphocytes # (0.90-5.00) 10*3/uL Monocytes # (0.20-1.00) 10*3/uL Eosinophils # (0.04-0.35) 10*3/uL Basophils # (0.00-0.10) 10*3/uL Sodium (137-145) mmol/L Potassium (3.5-5.1) mmol/L Chloride (98-107) mmol/L Carbon Dioxide (22-30) mmol/L Anion Gap mmol/L BUN (9-20) mg/dL Creatinine (0.66-1.25) mg/dL Est GFR (CKD-EPI)AfAm (>60 ml/min/1.73 sqM) Est GFR (CKD-EPI)NonAf (>60 ml/min/1.73 sqM) Glucose (74-99) mg/dL Plasma Lactic Acid Abelardo (0.7-2.0) mmol/L Calcium (8.4-10.2) mg/dL Total Bilirubin (0.2-1.3) mg/dL AST (17-59) U/L ALT (4-49) U/L Alkaline Phosphatase (38-126) U/L Total Protein (6.3-8.2) g/dL Albumin (3.5-5.0) g/dL Amylase (30-110) U/L Lipase (23-300) U/L Urine Color Light Yellow Urine Appearance Clear (Clear) Urine pH 7.5 (5.0-8.0) Ur Specific [place] 1.018 (1.001-1.035) Urine Protein Negative (Negative) Urine Glucose (UA) Negative (Negative) Urine Ketones Negative (Negative) Urine Blood Moderate H (Negative) Urine Nitrite Negative (Negative) Urine Bilirubin Negative (Negative) Urine Urobilinogen <2.0 (<2.0) mg/dL Ur Leukocyte Esterase Negative (Negative) Urine RBC 69 H (0-5) /hpf Urine WBC 1 (0-5) /hpf Urine Mucus Rare H (None) /hpf Disposition <Claire Diaz - Last Filed: 12/22/24 17:19> Is patient prescribed a controlled substance at d/c from ED?: Yes When asked, does pt state using other controlled substances?: No If prescribed controlled substance>3 days was MAPS reviewed?: Prescribed <3 Days If opioid is for acute pain is fill amount 7 days or less?: Yes Time of Disposition: 18:25 <Danette Pierre - Last Filed: 12/22/24 18:27> Clinical Impression: Left nephrolithiasis Disposition: HOME SELF-CARE Condition: Stable Instructions (If sedation given, give patient instructions): Kidney Stones (ED) Additional Instructions: Follow-up with urology tomorrow as discussed. Take Flomax to aid in passage of stone. Take Toradol and Tylenol 3's as needed for pain. Please return to the Emergency Department if symptoms worsen or any other concerns. Prescriptions: Ketorolac [Toradol] 10 mg PO Q8HR #15 tab Referrals: None,Stated [Primary Care Provider] - 1-2 days Bartolome Gutierrez MD [STAFF PHYSICIAN] - 1-2 days
[2024-12-22] MEDS: ONDANSETRON 4 MG/2 ML VIAL IVP STA (15:27)
[2024-12-22] MEDS: SODIUM CHLORIDE 0.9% 1,000 ML IV ONE (15:28)
[2024-12-22] MEDS: KETOROLAC 15 MG/ML 1 ML VIAL IVP STA (15:28)
[2024-12-22] MEDS: HYDROmorphone 0.5 MG/0.5 ML SYRINGE IVP STA (15:29)
[2024-12-22 15:37] LABS: Basophils # (A) 0.04 10*3/uL (0.00-0.10); Basophils % (A) 0.7 %; Eosinophils # (A) 0.08 10*3/uL (0.04-0.35); Eosinophils % (A) 1.4 %; HCT 45.1 % (39.6-50.0); HGB 15.5 g/dL (13.0-17.0); Lymphocytes # (A) 2.11 10*3/uL (0.90-5.00); Lymphocytes % (A) 37.2 %; MCH 30.9 pg (27.0-32.0); MCHC 34.4 g/dL (32.0-37.0); MCV 90.0 fL (80.0-97.0); Monocytes # (A) 0.36 10*3/uL (0.20-1.00); Monocytes % (A) 6.3 %; Neutrophils # (A) 3.07 10*3/uL (1.80-7.70); Neutrophils % (A) 54.2 %; Platelet Count 165 10*3/uL (140-440); RBC 5.01 10*6/uL (4.40-5.60); RDW 12.8 % (11.5-14.5); WBC 5.67 10*3/uL (4.50-10.00)
[2024-12-22 15:51] LABS: ALT 17 U/L (4-49); AST 22 U/L (17-59); African American GFR (CKD) >90 (>60 ml/min/1.73 sqM); Albumin 5.0 g/dL (3.5-5.0); Alkaline Phosphatase 61 U/L (38-126); Amylase 59 U/L (30-110); Anion Gap 8 mmol/L; Blood Urea Nitrogen 15 mg/dL (9-20); Calcium 9.9 mg/dL (8.4-10.2); Carbon Dioxide 29 mmol/L (22-30); Chloride 105 mmol/L (98-107); Glucose 120 mg/dL (74-99); Lipase 97 U/L (23-300); Non-African American GFR(CKD) 79 (>60 ml/min/1.73 sqM); Potassium 5.0 mmol/L (3.5-5.1); Sodium 142 mmol/L (137-145); Total Protein 7.8 g/dL (6.3-8.2)
--- NOTE | 2024-12-22 17:14 | CT ---
EXAMINATION TYPE: CT abdomen pelvis wo con DATE OF EXAM: 12/22/2024 5:06 PM COMPARISON: Multiple prior CT abdomen/pelvis studies, most recently dated 09/01/2018. CLINICAL INDICATION: Male, 39 years old with history of LLQ abd pain; llq abdominal pain TECHNIQUE: Axial CT abdomen pelvis wo con;Sagittal and coronal reformats were created on a separate workstation. Oral contrast used: without Oral Contrast (none if empty) CT DLP: 360.4 mGycm, Automated exposure control for dose reduction was used. FINDINGS: LOWER CHEST: Unremarkable ABDOMEN LIVER: Unremarkable GALLBLADDER AND BILE DUCTS: Unremarkable. PANCREAS: Unremarkable. SPLEEN: Unremarkable. ADRENAL GLANDS: Unremarkable. KIDNEYS AND URETERS: 4 mm calculus in the left posterior urinary bladder lumen adjacent to the left U VJ. There is associated minimal upstream left-sided hydroureteronephrosis. Nonobstructing left renal calculi measuring up to 3-4 mm. No evidence of right-sided nephrolithiasis or hydronephrosis. PELVIS BLADDER: No evidence for wall thickening or mass given limitations of exam. REPRODUCTIVE: Unremarkable. ABDOMEN & PELVIS STOMACH AND BOWEL: Stomach and duodenum are unremarkable. No evidence of bowel obstruction. PERITONEUM/RETROPERITONEUM: No evidence of pneumoperitoneum or free fluid. VASCULATURE: No evidence of aortic aneurysm. MUSCULOSKELETAL: No acute osseous abnormalities LYMPH NODES: No gross evidence for lymphadenopathy. SOFT TISSUE/ABDOMINAL WALL: Unremarkable IMPRESSION: 1. 4 mm calculus in the left posterior bladder lumen adjacent to the left UVJ consistent with a rece ntly passed stone. Minimal residual left-sided hydroureteronephrosis. 2. Additional nonobstructing left renal calculi. [facility], , 12/22/2024 5:12 PM
[2024-12-22] MEDS: HYDROmorphone 1 MG/ML 1 ML SYRINGE IVP STA (17:31)
[2024-12-22 17:36] LABS: Bilirubin,Urine Negative (Negative); Blood,Urine Moderate (Negative); Color,Urine Light Yellow; Glucose,Urine (UA) Negative (Negative); Ketones,Urine Negative (Negative); Leukocyte Esterase,Urine Negative (Negative); Mucus,Urine Rare /hpf; Nitrite,Urine Negative (Negative); PH, Urine 7.5 (5.0-8.0); Protein,Urine Negative (Negative); RBC,Urine 69 /hpf (0-5); Specific Gravity,Urine 1.018 (1.001-1.035); Urobilinogen,Urine <2.0 mg/dL (<2.0); WBC,Urine 1 /hpf (0-5)
[2024-12-22] MEDS: ACET/COD 300 MG/30 MG STARTER PACK TAB BTL PO STA (18:36)
[2024-12-22 18:40] VITALS: BP 131/80; PULSE 56; RESP 18; TEMP 97.7
== END 2024-12-22 18:40 | disposition home or self-care (01) ==
LOC: EC 14:36
DX: N13.2 Hydronephrosis with renal and ureteral calculous obstruction (principal); F17.290 Nicotine dependence, other tobacco product, uncomplicated; Z91.040 Latex allergy status; Z88.8 Allergy status to other drugs, medicaments and biological substances
CPT/HCPCS: 36415; 80053; 82150; 83605; 83690; 85025; 81001; 74176; 99284; 96374; 96375; 96376; 96361; J2405; J1171 ×2; J1885